=== PATIENT | male | born 1960 | race Caucasian/White ===

== ENCOUNTER 2019-11-26 18:36 | Inpatient (IN) | payer MEDICAID ==
[~2019-11-26] VITALS: Ht 162.6 cm; Wt 74.0 kg
[~2019-11-26 18:36] MED LIST: LISI-424 PO; METF100028 PO; SIMV80TA67 PO
[2019-11-26 19:01] VITALS: BP 133/102
[2019-11-26 19:58] LABS: BASOPHILS % (AUTO) 0.5 % (0.0-2.0); EOSINOPHILS # (AUTO) 0.1 K/uL (0-0.4); EOSINOPHILS % (AUTO) 2.1 % (0.0-4.0); HEMATOCRIT 35.5 % (36-52); LYMPHOCYTES # (AUTO) 1.6 K/uL (2.0-11.5); LYMPHOCYTES % (AUTO) 23.9 % (20.5-51.1); MEAN CORPUSCULAR HEMOGLOBIN 32 pg (27-31); MEAN CORPUSCULAR HGB CONC 34 g/dL (33-37); MEAN CORPUSCULAR VOLUME 95.2 fL (80-94); MONOCYTES # (AUTO) 0.3 K/uL (0.8-1.0); MONOCYTES % (AUTO) 4.6 % (1.7-9.3); NEUTROPHILS # (AUTO) 4.7 K/uL (1.8-7.7); NEUTROPHILS % (AUTO) 68.9 % (42.2-75.2); PLATELET COUNT (AUTO) 206 K/uL (140-450); RED BLOOD CELL COUNT(AUTO) 3.73 MIL/uL (4.20-6.10); RED CELL DISTRIBUTION WIDTH 13.1 % (11.6-13.7); WHITE BLOOD COUNT (AUTO) 6.8 K/uL (4.8-10.8)
[2019-11-26 20:46] LABS: ALBUMIN 2.9 g/dL (3.4-5.0); ANION GAP 17.1 (8-16); CARBON DIOXIDE 20.9 mmol/L (21-32); TOTAL BILIRUBIN 0.3 mg/dL (0.0-1.0)
[2019-11-26 20:47] LABS: CREATININE 6.4 mg/dL (0.6-1.3)
[2019-11-26] MEDS ORDERED: INSULIN REGULAR, HUMAN 100 UNIT/ML VIAL IV ONE (22:05)
[2019-11-26 22:18] LABS: CREATINE KINASE MB 2.3 ng/mL (0-3.6)
[2019-11-26] MEDS ORDERED: DOCUSATE SODIUM 100 MG GELCAP PO PRN (23:00)
[2019-11-26] MEDS ORDERED: ACETAMINOPHEN 325 MG TAB PO PRN (23:00)
[2019-11-26] MEDS ORDERED: DEXTROSE 50% 50 ML SYR IVP PRN (23:00)
[2019-11-26] MEDS ORDERED: MORPHINE SULFATE 2 MG/ML SYR IVP PRN (23:00)
[2019-11-26] MEDS ORDERED: LORazepam 2 MG/ML VIAL IM/IVP PRN (23:00)
[2019-11-26] MEDS ORDERED: HYDROcodone/APAP 5/325 MG 1 TAB TAB PO PRN (23:00)
[2019-11-26] MEDS ORDERED: ONDANSETRON 4 MG/2 ML VIAL IM/IVP PRN (23:00)
[2019-11-26 23:25] VITALS: BP 158/88
[2019-11-26 23:58] LABS: MAGNESIUM 2.1 mg/dL (1.8-2.4); PHOSPHORUS 4.5 mg/dL (2.5-4.9)
[2019-11-27] VITALS (7 sets, daily range): BP systolic 128–165; BP diastolic 78–92
[2019-11-27 00:11] LABS: PROTHROMBIN TIME 9.3 secs (10.8-13.4)
[2019-11-27] MEDS: NACL 0.9% 1,000 ML IV SCH ×3 (00:22→19:01)
[2019-11-27 03:27] LABS: BARBITURATE, URINE NEGATIVE ng/ml (NEG <=200); BENZODIAZEPINE, URINE NEGATIVE ng/mL (NEG <=200); CANNABINOID, URINE NEGATIVE ng/mL (NEG <=50); COCAINE, URINE NEGATIVE ng/mL (NEG <=300); OPIATE, URINE NEGATIVE ng/mL (NEG <=2000); PHENCYCLIDINE SCREEN,URINE NEGATIVE ng/mL (NEG <=25)
[2019-11-27] MEDS ORDERED: MECLIZINE 25 MG TAB PO PRN (03:35)
[2019-11-27] MEDS ORDERED: LANTUS SUBQ (03:41)
[2019-11-27] MEDS ORDERED: cloNIDine 0.1 MG TAB PO PRN (04:05)
[2019-11-27] MEDS: INSULIN LISPRO SLIDING SCALE 100 UNITS/ML VIAL SUBQ PRN ×4 (05:59→20:26)
[2019-11-27] MEDS: BLOOD GLUCOSE MONITORING 1 DEV DEV FS SCH ×4 (06:37→20:26)
[2019-11-27 07:04] LABS: APPEARANCE,URINE CLEAR (CLEAR); BILIRUBIN,URINE NEGATIVE (NEGATIVE); BLOOD, URINE 1+ (NEGATIVE); COLOR,URINE YELLOW (YELLOW); LEUKOCYTE ESTERASE ,URINE NEGATIVE (NEGATIVE); NITRITE, URINE NEGATIVE (NEGATIVE); PH,URINE 5.5 (5.0-9.0); UGLUCOSE 3+ (NEGATIVE)
[2019-11-27 07:11] LABS: BASOPHILS % (AUTO) 0.7 % (0.0-2.0); EOSINOPHILS # (AUTO) 0.2 K/uL (0-0.4); EOSINOPHILS % (AUTO) 3.2 % (0.0-4.0); HEMATOCRIT 30.9 % (36-52); HEMOGLOBIN 10.4 g/dL (12.0-18.0); LYMPHOCYTES % (AUTO) 27.7 % (20.5-51.1); MEAN CORPUSCULAR HEMOGLOBIN 32 pg (27-31); MEAN CORPUSCULAR HGB CONC 34 g/dL (33-37); MEAN CORPUSCULAR VOLUME 94.9 fL (80-94); MONOCYTES # (AUTO) 0.4 K/uL (0.8-1.0); MONOCYTES % (AUTO) 5.6 % (1.7-9.3); NEUTROPHILS # (AUTO) 4.5 K/uL (1.8-7.7); NEUTROPHILS % (AUTO) 62.8 % (42.2-75.2); PLATELET COUNT (AUTO) 195 K/uL (140-450); RED BLOOD CELL COUNT(AUTO) 3.25 MIL/uL (4.20-6.10); RED CELL DISTRIBUTION WIDTH 13.2 % (11.6-13.7); WHITE BLOOD COUNT (AUTO) 7.2 K/uL (4.8-10.8)
[2019-11-27 07:35] LABS: RBC,URINE 0-5 /HPF (0-5)
[2019-11-27 08:00] LABS: ANION GAP 16.8 (8-16); CARBON DIOXIDE 20.9 mmol/L (21-32); POTASSIUM 3.7 mmol/L (3.5-5.1)
[2019-11-27 08:11] LABS: CHOL/HDL RATIO 7.4 (1-4.5)
[2019-11-27] MEDS: ASPIRIN 325 MG TABEC PO SCH (15:00)
[2019-11-27] MEDS ORDERED: LACTULOSE 20 GM/30 ML UDC PO SCH (16:55)
[2019-11-27] MEDS: amLODIPine 5 MG TAB PO SCH (17:20)
[2019-11-27] MEDS: ATORVASTATIN 20 MG TAB PO SCH (20:22)
[2019-11-28] VITALS: BP 128/74
[2019-11-28 04:00] VITALS: BP 158/85
[2019-11-28] MEDS: NACL 0.9% 1,000 ML IV SCH ×2 (04:02→19:13)
[2019-11-28 04:04] LABS: BASOPHILS # (AUTO) 0.1 K/uL (0.00-0.22); BASOPHILS % (AUTO) 0.8 % (0.0-2.0); EOSINOPHILS # (AUTO) 0.2 K/uL (0-0.4); EOSINOPHILS % (AUTO) 2.5 % (0.0-4.0); HEMATOCRIT 30.9 % (36-52); HEMOGLOBIN 10.6 g/dL (12.0-18.0); LYMPHOCYTES % (AUTO) 28.4 % (20.5-51.1); MEAN CORPUSCULAR HEMOGLOBIN 33 pg (27-31); MEAN CORPUSCULAR HGB CONC 34 g/dL (33-37); MEAN CORPUSCULAR VOLUME 95.6 fL (80-94); MONOCYTES # (AUTO) 0.4 K/uL (0.8-1.0); MONOCYTES % (AUTO) 5.6 % (1.7-9.3); NEUTROPHILS # (AUTO) 4.3 K/uL (1.8-7.7); NEUTROPHILS % (AUTO) 62.7 % (42.2-75.2); PLATELET COUNT (AUTO) 191 K/uL (140-450); RED BLOOD CELL COUNT(AUTO) 3.24 MIL/uL (4.20-6.10); RED CELL DISTRIBUTION WIDTH 13.3 % (11.6-13.7); WHITE BLOOD COUNT (AUTO) 6.9 K/uL (4.8-10.8)
[2019-11-28 04:29] LABS: ANION GAP 12.1 (8-16); CARBON DIOXIDE 22.8 mmol/L (21-32); POTASSIUM 3.9 mmol/L (3.5-5.1)
[2019-11-28 04:33] LABS: MAGNESIUM 1.8 mg/dL (1.8-2.4)
[2019-11-28 04:50] LABS: CREATININE 5.3 mg/dL (0.6-1.3)
[2019-11-28] MEDS: BLOOD GLUCOSE MONITORING 1 DEV DEV FS SCH ×4 (06:29→21:20)
[2019-11-28] MEDS: BUPIVACAINE-MPF 0.25% 30 ML VIAL INJ ONE ×2 (07:32→17:00)
[2019-11-28] MEDS: LIDOCAINE 1% 500 MG/50 ML VIAL ONE ×2 (07:32→17:01)
[2019-11-28] MEDS ORDERED: DEXAMETHASONE 4 MG/ML VIAL ONE (07:44)
[2019-11-28] MEDS ORDERED: fentaNYL 0.05 MG/ML VIAL ONE (07:44)
[2019-11-28] MEDS ORDERED: PROPOFOL 200 MG/20 ML VIAL IV ONE (07:44)
[2019-11-28] MEDS ORDERED: ePHEDrine 50 MG/ML VIAL ONE (07:44)
[2019-11-28] MEDS ORDERED: ONDANSETRON 4 MG/2 ML VIAL ONE (07:44)
[2019-11-28] MEDS ORDERED: SEVOFLURANE 250 ML BTL INH ONE (07:44)
[2019-11-28 08:00] VITALS: BP 158/85
[2019-11-28] MEDS: amLODIPine 5 MG TAB PO SCH (09:00)
[2019-11-28] MEDS: ASPIRIN 325 MG TABEC PO SCH (09:00)
[2019-11-28 12:00] VITALS: BP 159/85
[2019-11-28 16:00] VITALS: BP 152/87
[2019-11-28] MEDS: INSULIN LISPRO SLIDING SCALE 100 UNITS/ML VIAL SUBQ PRN ×2 (17:24→21:59)
[2019-11-28 20:00] VITALS: BP_SYST 102; BP_SYST 131; BP_DIAS 56; BP_DIAS 82
[2019-11-28] MEDS: ATORVASTATIN 20 MG TAB PO SCH (22:53)
[2019-11-29] VITALS: BP_SYST 116; BP_SYST 149; BP_DIAS 52; BP_DIAS 86
[2019-11-29 04:00] VITALS: BP 147/79
[2019-11-29] MEDS: BLOOD GLUCOSE MONITORING 1 DEV DEV FS SCH ×3 (06:19→16:54)
[2019-11-29] MEDS: INSULIN LISPRO SLIDING SCALE 100 UNITS/ML VIAL SUBQ PRN ×3 (06:19→16:59)
[2019-11-29 06:26] LABS: BASOPHILS % (AUTO) 0.3 % (0.0-2.0); HEMATOCRIT 30.3 % (36-52); HEMOGLOBIN 10.4 g/dL (12.0-18.0); LYMPHOCYTES # (AUTO) 1.4 K/uL (2.0-11.5); LYMPHOCYTES % (AUTO) 14.9 % (20.5-51.1); MEAN CORPUSCULAR HEMOGLOBIN 32 pg (27-31); MEAN CORPUSCULAR HGB CONC 34 g/dL (33-37); MEAN CORPUSCULAR VOLUME 94.2 fL (80-94); MONOCYTES # (AUTO) 0.4 K/uL (0.8-1.0); MONOCYTES % (AUTO) 4.6 % (1.7-9.3); NEUTROPHILS # (AUTO) 7.3 K/uL (1.8-7.7); NEUTROPHILS % (AUTO) 80.2 % (42.2-75.2); PLATELET COUNT (AUTO) 207 K/uL (140-450); RED BLOOD CELL COUNT(AUTO) 3.21 MIL/uL (4.20-6.10); WHITE BLOOD COUNT (AUTO) 9.1 K/uL (4.8-10.8)
[2019-11-29 07:40] LABS: ANION GAP 12.6 (8-16); CREATININE 3.4 mg/dL (0.6-1.3); POTASSIUM 3.6 mmol/L (3.5-5.1)
[2019-11-29 07:43] LABS: MAGNESIUM 1.6 mg/dL (1.8-2.4); PHOSPHORUS 3.5 mg/dL (2.5-4.9)
[2019-11-29 08:00] VITALS: BP 156/83
[2019-11-29] MEDS: amLODIPine 5 MG TAB PO SCH (09:14)
[2019-11-29] MEDS: ASPIRIN 325 MG TABEC PO SCH (09:14)
[2019-11-29] MEDS: NACL 0.9% 1,000 ML IV SCH (11:39)
[2019-11-29 12:00] VITALS: BP 148/88
[2019-11-29] MEDS ORDERED: MAG SULF 2000 MG/WATER PREMIX 50 ML IV SCH (12:15)
[2019-11-29] MEDS ORDERED: ASPI-1205 PO (13:39)
[2019-11-29] MEDS ORDERED: AMLO10TA PO (14:27)
[2019-11-29 16:00] VITALS: BP 150/83
[2019-11-30 06:07] LABS: HEPATITIS A ANTIBODY IGM Negative (Negative); HEPATITIS B CORE AB TOTAL Negative (Negative); HEPATITIS B SURFACE ANTIBODY Non Reactive (.); HEPATITIS B SURFACE ANTIGEN Negative (Negative)
== END 2019-11-29 17:55 | disposition home or self-care (01) | DRG 48 ==
LOC: MED 18:36 → MTU 22:06
PROVIDERS: ADMIT General Practice; ATTEND General Practice
PROC: B5181ZA Fluoroscopy of Superior Vena Cava using Low Osmolar Contrast, Guidance (ICD-10-PCS; 2019-11-28)
PROC: B548ZZA Ultrasonography of Superior Vena Cava, Guidance (ICD-10-PCS; 2019-11-28)
PROC: 0JH63XZ Insertion of Tunneled Vascular Access Device into Chest Subcutaneous Tissue and Fascia, Percutaneous Approach (ICD-10-PCS; 2019-11-28)
PROC: 5A1D70Z Performance of Urinary Filtration, Intermittent, Less than 6 Hours Per Day (ICD-10-PCS; 2019-11-28)
PROC: 02HV33Z Insertion of Infusion Device into Superior Vena Cava, Percutaneous Approach (ICD-10-PCS; principal; 2019-11-28 07:30)
DX: G90.8 Other disorders of autonomic nervous system (principal); N17.0 Acute kidney failure with tubular necrosis; G93.41 Metabolic encephalopathy; E44.0 Moderate protein-calorie malnutrition; I12.0 Hypertensive chronic kidney disease with stage 5 chronic kidney disease or end stage renal disease; E11.22 Type 2 diabetes mellitus with diabetic chronic kidney disease; E11.319 Type 2 diabetes mellitus with unspecified diabetic retinopathy without macular edema; G81.94 Hemiplegia, unspecified affecting left nondominant side; N25.81 Secondary hyperparathyroidism of renal origin; E11.40 Type 2 diabetes mellitus with diabetic neuropathy, unspecified; N18.5 Chronic kidney disease, stage 5; E11.65 Type 2 diabetes mellitus with hyperglycemia; E66.9 Obesity, unspecified; N39.0 Urinary tract infection, site not specified; H54.62 Unqualified visual loss, left eye, normal vision right eye; D63.1 Anemia in chronic kidney disease; G45.9 Transient cerebral ischemic attack, unspecified; E87.1 Hypo-osmolality and hyponatremia; Z68.30 Body mass index [BMI] 30.0-30.9, adult; Z79.84 Long term (current) use of oral hypoglycemic drugs; Z79.899 Other long term (current) drug therapy; Z90.49 Acquired absence of other specified parts of digestive tract
CPT/HCPCS: 36415; 36600; 70450; 71045; 80048; 80053; 80305; 81001; 82140; 82306; 82550; 82553; 82803; 82948; 83036; 83690; 83735; 83880; 83970; 84100; 84443; 84484; 84550; 85025; 85610; 85730; 86704; 86706; 86708; 86709; 86803; 86886; 86900; 86901; 87081; 87086; 87340; 92610; 93005; 93880; 96374; 97110; 97116; 97161-GP; 97530; 99291; C1750; J0696; J1100; J1644; J1815; J2001; J2060; J2405; J2704; J3010; J3475; J3490; J7030; J7060; Q0092

== ENCOUNTER 2020-02-18 14:54 | Emergency (ER) | payer MEDICAID ==
[~2020-02-18] VITALS: Ht 165.1 cm; Wt 73.5 kg
[~2020-02-18 14:54] MED LIST changes: +AMLO10TA PO; +ASPI-1205 PO; +LANTUS SUBQ; -METF100028 PO
[2020-02-18 15:03] VITALS: BP 155/87
[2020-02-18 16:07] VITALS: BP 155/87
== END 2020-02-18 16:07 | disposition home or self-care (01) ==
LOC: MED 14:54
DX: L89.894 Pressure ulcer of other site, stage 4 (principal); E11.9 Type 2 diabetes mellitus without complications; I10 Essential (primary) hypertension; Z79.899 Other long term (current) drug therapy; Z79.82 Long term (current) use of aspirin
CPT/HCPCS: 73620; 99283

== ENCOUNTER 2020-08-06 21:04 | Emergency (ER) | payer MEDICAID ==
[~2020-08-06] VITALS: Ht 162.6 cm; Wt 72.6 kg
[2020-08-06 21:18] VITALS: BP 131/80
--- NOTE | 2020-08-06 21:18 | NUR ---
BACK PAIN X TUESDAY. DENIES ANY TRUAMA, FALLS, OR INJURY. 8/ PAIN. TOOK TYLENOL 3OMINS AGO WITH NO RELIEF. DENIES ANY BURNING SENSATION WHEN URINATING. A&OX4. STEADY GAIT NOTED. PMH: DM, DIALYSIS(RT UPPER CHEST CATH IS LOCATED) GOES TUES, THURS, AND SAT.
[2020-08-06] MEDS ORDERED: KETOROLAC 60 MG/2 ML VIAL IM ONE (22:25)
[2020-08-06 23:01] VITALS: BP 131/80
== END 2020-08-06 23:01 | disposition home or self-care (01) ==
LOC: MED 21:04
DX: M54.5 Low back pain (principal); E11.9 Type 2 diabetes mellitus without complications; I10 Essential (primary) hypertension; Z79.4 Long term (current) use of insulin; Z79.899 Other long term (current) drug therapy; Z79.82 Long term (current) use of aspirin
CPT/HCPCS: 81002; 96372; 99283; J1885

== ENCOUNTER 2020-08-11 22:07 | Inpatient (IN) | payer MEDICAID, SELFPAY ==
[~2020-08-11] VITALS: Ht 160 cm; Wt 74.8 kg
--- NOTE | 2020-08-11 22:09 | NUR ---
pt triaged and waiting in tent.
--- NOTE | 2020-08-11 22:20 | NUR ---
placed pt on NRB 15LPM for sats of 69-70%. now 94-95%.
[2020-08-11] MEDS ORDERED: DEXAMETHASONE 4 MG/ML VIAL IM ONE (22:50)
[2020-08-11] MEDS ORDERED: ALBUTEROL SULFATE/IPRATROPIU 3 ML SOL IH ONE (22:50)
[2020-08-11] MEDS ORDERED: AZITHROMYCIN 250 MG TAB PO ONE (22:50)
[2020-08-11] MEDS ORDERED: cefTRIAXone 1,000 MG in LIDOCAINE MPF 1% 2.1 ML IM ONE (22:50)
[2020-08-11 22:54] VITALS: BP 149/67
--- NOTE | 2020-08-11 23:10 | NUR ---
PCR and Elizabeth swabs collected.
--- NOTE | 2020-08-11 23:30 | NUR ---
PT GIVEN MDI + ABG DRAWN B/S CLR/DIM PT TOLERATED WELL 2X PUFF ALB
--- NOTE | 2020-08-11 23:31 | NUR ---
ATTEMPTED ABG PUNCTURE AND PT IS REFUSING AT THIS TIME PT CURRENTLY ON 100% NRB SPO2 93% HR 107 f 26
[2020-08-11 23:49] LABS: BASOPHILS % (AUTO) 0.1 % (0.0-2.0); HEMATOCRIT 29.4 % (36-52); LYMPHOCYTES % (AUTO) 7.8 % (20.5-51.1); MEAN CORPUSCULAR HEMOGLOBIN 32 pg (27-31); MEAN CORPUSCULAR HGB CONC 34 g/dL (33-37); MEAN CORPUSCULAR VOLUME 95.6 fL (80-94); MONOCYTES # (AUTO) 0.3 K/uL (0.8-1.0); MONOCYTES % (AUTO) 2.1 % (1.7-9.3); PLATELET COUNT (AUTO) 191 K/uL (140-450); RED BLOOD CELL COUNT(AUTO) 3.08 MIL/uL (4.20-6.10); RED CELL DISTRIBUTION WIDTH 13.7 % (11.6-13.7); WHITE BLOOD COUNT (AUTO) 12.2 K/uL (4.8-10.8)
[2020-08-11 23:55] LABS: FIBRINOGEN 287 mg/dL (200-400)
[2020-08-11 23:58] LABS: ALBUMIN 2.5 g/dL (3.4-5.0); ANION GAP 16.5 (8-16); CARBON DIOXIDE 25.9 mmol/L (21-32); POTASSIUM 3.4 mmol/L (3.5-5.1); TOTAL BILIRUBIN 0.6 mg/dL (0.0-1.0)
[2020-08-12 00:10] LABS: CREATININE 8.7 mg/dL (0.6-1.3)
[2020-08-12 00:12] LABS: D-DIMER 2290 ng/ml (0-400)
[2020-08-12 00:20] LABS: C-REACTIVE PROTEIN QUANT 3.5 mg/dL (0.0-0.9)
[2020-08-12] MEDS ORDERED: AZITHROMYCIN 250 MG TAB ONE (02:37)
[2020-08-12] MEDS ORDERED: cefTRIAXone 1,000 MG VIAL ONE ×2 (02:37→22:18)
[2020-08-12] MEDS ORDERED: DEXAMETHASONE 4 MG/ML VIAL ONE (02:37)
--- NOTE | 2020-08-12 08:17 | NUR ---
aaox4 . o2sat 97% with O2 non rebreather.
[2020-08-12] MEDS ORDERED: HYDROcodone/APAP 7.5/325 MG 1 TAB PO PRN (08:20)
[2020-08-12] MEDS ORDERED: DEXTROSE 50% 50 ML SYR IVP PRN (08:20)
[2020-08-12] MEDS ORDERED: ACETAMINOPHEN 325 MG TAB PO PRN (08:20)
[2020-08-12] MEDS ORDERED: ALBUTEROL HFA MDI 90 MCG/ACTUATION 8 GM INH PRN (08:20)
[2020-08-12] MEDS ORDERED: ONDANSETRON 4 MG/2 ML VIAL IM/IVP PRN (08:20)
[2020-08-12] MEDS ORDERED: POTASSIUM CHLORIDE 10 MEQ TABER PO PRN (08:20)
[2020-08-12] MEDS ORDERED: DOCUSATE SODIUM 100 MG GELCAP PO PRN (08:20)
--- NOTE | 2020-08-12 09:17 | NUR ---
PATIENT HAS BEEN SCREENED AND CATEGORIZED MODERATE NUTRITION RISK. PATIENT WILL BE SEEN WITHIN 3-5 DAYS OF ADMISSION. 08/14/20 08/16/[address]
[2020-08-12] MEDS: ASPIRIN 325 MG TAB PO SCH (09:29)
[2020-08-12] MEDS: amLODIPine 5 MG TAB PO SCH (09:30)
[2020-08-12] MEDS: ASCORBIC ACID 500 MG TAB PO SCH (09:32)
[2020-08-12] MEDS: ZINC SULF 220 MG CAP PO SCH (09:33)
[2020-08-12] MEDS: lisinopriL 5 MG TAB PO SCH (09:33)
--- NOTE | 2020-08-12 10:52 | NUR ---
SOCIAL WORK NOTE: Patient's Orientation Unable To Assess Information Provided By NANI LLAMAS - SON Comments SW WAS UNABLE TO MEET PATIENT AT BEDSIDE TO COMPLETE ASSESSMENT. SW COMPLETED ASSESSMENT WITH PATIENT'S SON. Discovery Guide, Realtionship and Phone Number NANI WILLIAMSON [phone] Healthcare Power of Weather Stripper No Does Patient Have a POLST No Identifying Problems No Social Work Triggers Is A Social Work Consult Needed No Mandate Report Filed No Explanation Of Identifying Problems PATIENT IS A 60-YEAR-OLD MALE ADMITTED FOR ACUTE RESPIRATORY FAILURE. PATIENT HAS PMHX OF CVA, ESRD, AND HYPERTENSION. Admitted From Home Pre-Admission Level Of Functioning Status Independent/Ambulatory Prior Resources/Services Used In Last 12 Months No Prior Resources Used Prior DME No Prior DME Used Dialysis Hemodialysis Name And Phone Number of Dialysis Facility [facility] ESRD Outpatient Days [facility] ESRD Outpatient Time [address] Lives With Family Patient Had Caregiver No Home Support No Caregiver Issues Financial Issues No Known Financial Issue Referral To The Financial Counselor Needed No Factors/Needs No D/C Needs Identified Pt/Rep Participated In Discharge Plan Yes Patient/Family Agress With Discharge Plan Yes Discharge Plan Comments TENTATIVE DISCHARGE PLAN IS FOR PATIENT TO RETURN HOME. DC Plan Status Initiated
[2020-08-12] MEDS: BLOOD GLUCOSE MONITORING 1 DEV DEV FS SCH ×3 (11:54→21:00)
[2020-08-12] MEDS: INSULIN LISPRO SLIDING SCALE 100 UNITS/ML VIAL SUBQ PRN ×3 (11:56→22:55)
[2020-08-12 13:30] LABS: CHOL/HDL RATIO 3.6 (1-4.5); FREE T4 (FREE THYROXINE) 1.83 ng/dL (0.76-1.46); MAGNESIUM 2.5 mg/dL (1.8-2.4); PHOSPHORUS 5.6 mg/dL (2.5-4.9); THYROID STIMULATING HORMONE 0.24 uIU/mL (0.34-3.74)
[2020-08-12 13:32] LABS: PROTHROMBIN TIME 10.2 secs (10.8-13.4)
--- NOTE | 2020-08-12 17:00 | NUR ---
PATIENT TAKEN TO BED 10 VIA WHEELCHAIR, UNABLE TO AMBULATE AT THIS TIME
--- NOTE | 2020-08-12 18:10 | NUR ---
+ covid result from lab-- copy to go to infection prevention
--- NOTE | 2020-08-12 18:58 | NUR ---
PATIENT SP02 78-82% 15L NON REBREATHERMD LUEVANO MADE AWARE. PATIENT REMINDED TO TAKE DEEP BREATHS. AWAKE AND ALERT.
--- NOTE | 2020-08-12 19:15 | NUR ---
ASSUMED REPONSIBILITY OF CARE AT THIS TIME. PT RESTING IN BED, VERBALLY RESPONSIVE, GREEK SPEAKING ONLY. LUNG SOUNDS COARSE THROUGHOUT. 15 LPM VIA NON-REBREATHER. ABD NON-DISTENDED, NONTENDER. +BOWEL SOUNDS NOTED. DENIES PAIN AT THIS TIME. BED LOW AND LOCKED WITH SAFETY PRECAUTIONS IN PLACE. WILL CONT TO MONITOR.
--- NOTE | 2020-08-12 20:07 | NUR ---
CALLED TO BEDSIDE PT DESAT 79-82 NRB WAS LOOSE ON FACE PLACED NRB BACK ON FACE AND PT SPO2 CURRENTLY 85% APPEARS TO BE SLOWLY RISING WILL CONTINUE TO MONITOR
[2020-08-12] MEDS: SIMVASTATIN 40 MG TAB PO SCH (21:00)
[2020-08-12] MEDS ORDERED: SIMVASTATIN PO SCH (21:00)
[2020-08-12] MEDS ORDERED: AZITHROMYCIN 250 MG TAB PO SCH (21:00)
--- NOTE | 2020-08-12 22:00 | NUR ---
RESTING BLOOD SUGAR 342 AT THIS TIME. INSLIN ADMINISTERED, PER SLIDING SCALE. DENIES ANY SYMPTOMS OF HYPERGLYCEMIA AT THIS TIME. EDUCATED ON APPROPRIATE DIET. WILL CONT TO MONITOR.
--- NOTE | 2020-08-13 | NUR ---
PRN POTASSIUM ADMINISTERED AT THIS TIME FOR K LEVEL OF 3.4. WILL FOLLOW-UP
--- NOTE | 2020-08-13 04:57 | NUR ---
ASSISTED PT TO REPOSITION. CONTINUES ON NON-REBREATHER @ 15 LPM.
[2020-08-13] MEDS: BLOOD GLUCOSE MONITORING 1 DEV DEV FS SCH ×4 (06:52→20:53)
[2020-08-13] MEDS: INSULIN LISPRO SLIDING SCALE 100 UNITS/ML VIAL SUBQ PRN ×4 (06:53→20:59)
--- NOTE | 2020-08-13 07:18 | NUR ---
TRANSFER OF CARE AT THIS TIME FROM DREW BERMEO
[2020-08-13 08:07] LABS: T4 (THYROXINE) 7.2 ug/dL (4.5-12.0)
[2020-08-13 08:47] LABS: BASOPHILS % (AUTO) 0.1 % (0.0-2.0); HEMOGLOBIN 10.7 g/dL (12.0-18.0); LYMPHOCYTES # (AUTO) 0.4 K/uL (2.0-11.5); LYMPHOCYTES % (AUTO) 2.7 % (20.5-51.1); MEAN CORPUSCULAR HEMOGLOBIN 32 pg (27-31); MEAN CORPUSCULAR HGB CONC 33 g/dL (33-37); MEAN CORPUSCULAR VOLUME 96.9 fL (80-94); MONOCYTES # (AUTO) 0.3 K/uL (0.8-1.0); NEUTROPHILS # (AUTO) 15.8 K/uL (1.8-7.7); NEUTROPHILS % (AUTO) 95.2 % (42.2-75.2); PLATELET COUNT (AUTO) 244 K/uL (140-450); RED CELL DISTRIBUTION WIDTH 14.1 % (11.6-13.7); WHITE BLOOD COUNT (AUTO) 16.5 K/uL (4.8-10.8)
--- NOTE | 2020-08-13 09:33 | NUR ---
REPORT GIVEN TO RUTH RUSSELL FOR CONTINUATION OF CARE.
[2020-08-13 09:37] LABS: ANION GAP 20.6 (8-16); CARBON DIOXIDE 21.2 mmol/L (21-32); POTASSIUM 3.8 mmol/L (3.5-5.1)
[2020-08-13] MEDS: ASPIRIN 325 MG TAB PO SCH (09:43)
[2020-08-13] MEDS: ASCORBIC ACID 500 MG TAB PO SCH (09:44)
[2020-08-13] MEDS: amLODIPine 5 MG TAB PO SCH (09:44)
[2020-08-13] MEDS: lisinopriL 5 MG TAB PO SCH (09:44)
[2020-08-13] MEDS: ZINC SULF 220 MG CAP PO SCH (09:45)
--- NOTE | 2020-08-13 10:20 | NUR ---
Patient will be admitted to care of dr. luong. Admited to TELE. Will go to room 108 a. Belongings list completed. Report to nicko anton.
[2020-08-13 10:23] LABS: CREATININE 10.8 mg/dL (0.6-1.3)
[2020-08-13 10:30] VITALS: BP 145/86
--- NOTE | 2020-08-13 12:30 | NUR ---
HD NURSE AT BEDSIDE TO PERFORM HD. WILL CONTINUE TO MONITOR.
--- NOTE | 2020-08-13 13:35 | NUR ---
SCHEDULED MEDICATIONS DUE GIVEN. WILL CONTINUE TO MONITOR.
--- NOTE | 2020-08-13 14:12 | NUR ---
DC PLANNIN YRS OLD MALE PATIENT WAS ADMITTED FROM HOME WITH A DX OF ACUTE RESP FAILURE. HX OF ESRD ON HEMODIALYSIS TTHS AT [facility]. RAPID AND PCR COVID TEST POSITIVE. ON 15LNRB MASK SATING 89%. ADMINISTERED ROCEPHIN AND AZITHROMYCIN IV ABX. ORDERED CONVALESCENT PLASMA. CONSULTED WITH PULMO, NEPHRO AND ID. DC PLAN TO GO HOME WHEN STABLE CM TO FOLLOW Addendum: 08/15/20 at 1638 by Meenakshi Roa RN DC PLANNING: STILL ON 15LNRB SATING 90% PULMO AND ID FOLLOWING CM TO FOLLOW Addendum: 08/18/20 at 1512 by María Cid CM ORALLY INTUBATED TO VENT, FIO2 100%, PEEP 10, O2 SAT 95%. SEDATED WITH VERSED AND PROPOFOL. ON LEVOPHED DRIP. ON ELIQUIS, DECADRON. PER PULMO - CONT MECHANICAL VENTILATION SUPPORT, WEAN TOLERATED. WITH BILATERAL CHEST TUBE PLACED FOR PNEUMOTHORAX, ON WALL SUCTION.
[2020-08-13 16:00] VITALS: BP 124/80
[2020-08-13] MEDS: SEVELAMER CARBONATE 800 MG TAB PO SCH (17:45)
--- NOTE | 2020-08-13 17:45 | NUR ---
SCHEDULED MEDICATIONS DUE GIVEN. WILL CONTINUE TO MONITOR.
[2020-08-13 20:00] VITALS: BP 124/73
[2020-08-13] MEDS: SIMVASTATIN 40 MG TAB PO SCH (20:50)
[2020-08-13] MEDS: APIXABAN 2.5 MG TAB PO SCH (20:53)
--- NOTE | 2020-08-13 23:10 | NUR ---
PLASMA CONVALESCENT TRANSFUSION DONE, NO REACTIONS NOTED, VITAL SIGNS STABLE, PT SLEEPING, EASILY AROUSABLE, NO RESP DISTRESS NOTED, MONITORED CLOSELY.
[2020-08-14] VITALS: BP 133/70
[2020-08-14 04:00] VITALS: BP 146/82
--- NOTE | 2020-08-14 04:51 | NUR ---
PT VOIDED FREELY PER URINAL WITH 200ML LIGHT DAVID URINE, OCCASIONAL COUGH NOTED, PUT ON HIGH FOWLERS POSITION, 89% ON 15L NRB MASK, MONITORED CLOSELY.
[2020-08-14] MEDS: INSULIN LISPRO SLIDING SCALE 100 UNITS/ML VIAL SUBQ PRN ×4 (06:00→21:01)
--- NOTE | 2020-08-14 07:00 | NUR ---
CALLED [facility] AND TALKED TO SENAIT, MADE AWARE THAT PT HAS A SCHEDULED HD TODAY, WILL ENDORSE.
[2020-08-14] MEDS: BLOOD GLUCOSE MONITORING 1 DEV DEV FS SCH ×4 (07:07→21:01)
--- NOTE | 2020-08-14 07:25 | NUR ---
RECEIVED REPORT FROM NIGHT NURSE PATIENT IS AAOX4 ROMANSH SPEAKING, ON 15 LPM NON REBREATHER MASK SATURATION AT 85-91% SKIN INTACT , PLASMA COMPLETE 08/14/2020, FOR HEMODIALYSIS TODAY WITH RIGHT CHEST TUNNEL CATHETER ACCESS, IV INTACT, LATEST BLOOD SUGAR 377 MG/DL, SAFETY MEASURES IN PLACE AND CALL LIGHT WITHIN REACH.
--- NOTE | 2020-08-14 07:28 | NUR ---
PT AWAKE, NO SIGNS OF DISTRESS, REPORT GIVEN TO DREW ZHAO FOR CONTINUITY OF CARE.
[2020-08-14 08:00] VITALS: BP 127/56
[2020-08-14 08:43] LABS: BASOPHILS % (AUTO) 0.1 % (0.0-2.0); LYMPHOCYTES # (AUTO) 0.4 K/uL (2.0-11.5); LYMPHOCYTES % (AUTO) 2.8 % (20.5-51.1); MEAN CORPUSCULAR HEMOGLOBIN 32 pg (27-31); MEAN CORPUSCULAR HGB CONC 33 g/dL (33-37); MEAN CORPUSCULAR VOLUME 97.1 fL (80-94); MONOCYTES # (AUTO) 0.5 K/uL (0.8-1.0); MONOCYTES % (AUTO) 3.2 % (1.7-9.3); NEUTROPHILS # (AUTO) 14.3 K/uL (1.8-7.7); NEUTROPHILS % (AUTO) 93.9 % (42.2-75.2); PLATELET COUNT (AUTO) 255 K/uL (140-450); RED BLOOD CELL COUNT(AUTO) 3.09 MIL/uL (4.20-6.10); RED CELL DISTRIBUTION WIDTH 13.9 % (11.6-13.7); WHITE BLOOD COUNT (AUTO) 15.3 K/uL (4.8-10.8)
[2020-08-14] MEDS: amLODIPine 5 MG TAB PO SCH (09:00)
[2020-08-14] MEDS: lisinopriL 5 MG TAB PO SCH (09:00)
[2020-08-14 09:11] LABS: ANION GAP 25.1 (8-16); CARBON DIOXIDE 21.8 mmol/L (21-32); POTASSIUM 3.9 mmol/L (3.5-5.1)
[2020-08-14] MEDS: ASCORBIC ACID 500 MG TAB PO SCH (09:25)
[2020-08-14] MEDS: APIXABAN 2.5 MG TAB PO SCH ×2 (09:26→20:55)
[2020-08-14] MEDS: ZINC SULF 220 MG CAP PO SCH (09:27)
[2020-08-14] MEDS: ASPIRIN 325 MG TAB PO SCH (09:27)
[2020-08-14] MEDS: SEVELAMER CARBONATE 800 MG TAB PO SCH ×3 (09:27→17:32)
--- NOTE | 2020-08-14 09:30 | NUR ---
HEMODIALYSIS STARTED AT THIS TIME VITAL SIGNS TAKEN BP 121/72 NC 81 AND TEMP 98.1
--- NOTE | 2020-08-14 09:37 | NUR ---
MEDICATIONS DUE GIVEN PATIENT. NO SIGNS OF DISTRESS.
--- NOTE | 2020-08-14 09:39 | NUR ---
BP MEDICATIONS NOT GIVEN DUE TO DIALYSIS TODAY.
--- NOTE | 2020-08-14 10:25 | NUR ---
RECEIVED CRITICAL VALEU FROM LAB BUN 89, CREATININE 8.9. REPORTED TO DR SILVA.
[2020-08-14 10:27] LABS: CREATININE 8.9 mg/dL (0.6-1.3)
--- NOTE | 2020-08-14 11:30 | NUR ---
BLOOD SUGAR 224 INSULIN COVERAGE GIVEN.
--- NOTE | 2020-08-14 11:36 | NUR ---
PATIENT HEMODIALYSIS COMPLETE AT THIS TIME WITH 1.3 OUTPUT PATIENT IS STABLE
[2020-08-14 12:00] VITALS: BP 124/76
--- NOTE | 2020-08-14 12:05 | NUR ---
MEDICATION DUE GIVEN PATIENT TOLERATED WELL,
[2020-08-14 16:00] VITALS: BP 142/81
--- NOTE | 2020-08-14 16:30 | NUR ---
MEDICATION DUE GIVEN PATIENT. BLOOD SUGAR NOTED 312, INSULIN GIVEN NEEDED. PATIENT SHOWN NO SIGNS OF DISTRESS. CALL LIGHT WITHIN REACH. WILL CONTINUE TO MONITOR NEEDED
--- NOTE | 2020-08-14 19:28 | NUR ---
ENDORSED TO NIGHT NURSE FOR CONTINUITY OF CARE
--- NOTE | 2020-08-14 19:30 | NUR ---
RECEIVED PT ON HIGH FOWLERS POSITION, AAOX4, IRISH SPEAKING, NO RESP DISTRESS NOTED WITH SAT OF 91% ON 15L NRB MASK, WITH RT CHEST TUNNELED CATH IN PLACE, DRESSING DRY AND INTACT, ON DROPLET PRECAUTION, SAFETY MEASURES IN PLACE, CALL LIGHT WITHIN REACH.
[2020-08-14 20:00] VITALS: BP 144/70
[2020-08-14] MEDS: SIMVASTATIN 40 MG TAB PO SCH (20:53)
--- NOTE | 2020-08-14 21:05 | NUR ---
BLOOD SUGAR CHECKED WITH 317 RESULT, COVERAGE GIVEN, BEDTIME SNACK PROVIDED, ALL NEEDS ATTENDED.
--- NOTE | 2020-08-14 22:30 | NUR ---
SEEN PT SLEEPING ON HIGH FOWLERS POSITION, NO SIGNS OF RESP DISTRESS, MONITORED CLOSELY.
[2020-08-15] VITALS: BP 135/74
[2020-08-15 04:00] VITALS: BP 135/76
--- NOTE | 2020-08-15 04:20 | NUR ---
PT HAD NOSE BLEED FROM BLOWING HIS NOSE, RT MADE AWARE, RT PUT HUMIDIFIER ON THE O2, PT INSTRUCTED TO MINIMIZE BLOWING HIS NOSE ONLY WHEN IT'S NECESSARY, VERBALIZED UNDERSTANDING, MONITORED CLOSELY.
[2020-08-15] MEDS: INSULIN LISPRO SLIDING SCALE 100 UNITS/ML VIAL SUBQ PRN ×3 (06:05→21:26)
[2020-08-15] MEDS: BLOOD GLUCOSE MONITORING 1 DEV DEV FS SCH ×4 (06:57→21:24)
--- NOTE | 2020-08-15 07:35 | NUR ---
PT AWAKE, NO SIGNS OF DISTRESS, REPORT GIVEN TO RN JACQUELINE FOR CONTINUITY OF CARE.
[2020-08-15 08:00] VITALS: BP 122/69
[2020-08-15] MEDS: SEVELAMER CARBONATE 800 MG TAB PO SCH ×3 (08:00→17:28)
[2020-08-15 08:19] LABS: BASOPHILS % (AUTO) 0.1 % (0.0-2.0); HEMATOCRIT 28.6 % (36-52); HEMOGLOBIN 9.5 g/dL (12.0-18.0); LYMPHOCYTES # (AUTO) 0.6 K/uL (2.0-11.5); LYMPHOCYTES % (AUTO) 4.2 % (20.5-51.1); MEAN CORPUSCULAR HEMOGLOBIN 32 pg (27-31); MEAN CORPUSCULAR HGB CONC 33 g/dL (33-37); MEAN CORPUSCULAR VOLUME 96.6 fL (80-94); MONOCYTES # (AUTO) 0.9 K/uL (0.8-1.0); MONOCYTES % (AUTO) 6.9 % (1.7-9.3); NEUTROPHILS # (AUTO) 11.8 K/uL (1.8-7.7); NEUTROPHILS % (AUTO) 88.8 % (42.2-75.2); PLATELET COUNT (AUTO) 258 K/uL (140-450); RED BLOOD CELL COUNT(AUTO) 2.97 MIL/uL (4.20-6.10); RED CELL DISTRIBUTION WIDTH 13.9 % (11.6-13.7); WHITE BLOOD COUNT (AUTO) 13.3 K/uL (4.8-10.8)
[2020-08-15 08:28] LABS: ANION GAP 17.6 (8-16); CARBON DIOXIDE 23.3 mmol/L (21-32); POTASSIUM 3.9 mmol/L (3.5-5.1)
[2020-08-15] MEDS: amLODIPine 5 MG TAB PO SCH (09:00)
[2020-08-15] MEDS: ASCORBIC ACID 500 MG TAB PO SCH (09:00)
[2020-08-15] MEDS: APIXABAN 2.5 MG TAB PO SCH ×3 (09:00→21:14)
[2020-08-15] MEDS: ASPIRIN 325 MG TAB PO SCH (09:00)
[2020-08-15] MEDS: lisinopriL 5 MG TAB PO SCH (09:01)
[2020-08-15] MEDS: ZINC SULF 220 MG CAP PO SCH (09:01)
[2020-08-15 10:19] LABS: CREATININE 7.5 mg/dL (0.6-1.3)
[2020-08-15 12:00] VITALS: BP 132/75
[2020-08-15 16:00] VITALS: BP 139/71
--- NOTE | 2020-08-15 19:30 | NUR ---
RECEIVED REPORT FROM DAY SHIFT NURSE. PT AAOX4, ABLE TO MAKE NEEDS KNOWN. PT ON O2 15LPM VIA NON-REBREATHER MASK. PT TACHYPNEIC. CURRENT O2 SAT 89%. ABDOMEN IS SOFT AND NON-TENDER, ACTIVE BOWEL SOUNDS NOTED. SKIN IS WARM, DRY, AND INTACT. PT WITH IV ACCESS ON RIGHT FA G20 PATENT AND INTACT, SALINE LOCKED. PT DENIES ANY PAIN OR DISCOMFORT. NO REQUESTS MADE. SAFETY MEASURES IN PLACE. CALL LIGHT WITHIN REACH. WILL CONTINUE TO MONITOR.
[2020-08-15 20:00] VITALS: BP 151/83
[2020-08-15] MEDS: SIMVASTATIN 40 MG TAB PO SCH (21:13)
--- NOTE | 2020-08-15 21:14 | NUR ---
VS STABLE. SCHEDULED MEDS GIVEN. NON-REBREATHER MASK IN PLACE. O2 SAT 90%. PT KEPT COMFORTABLE. CALL LIGHT WITHIN REACH. WILL CONTINUE TO MONITOR.
[2020-08-16] VITALS (12 sets, daily range): BP systolic 84–156; BP diastolic 45–86
--- NOTE | 2020-08-16 | NUR ---
ENDORSED TO ICU NURSE SKYLER) FOR CONTINUITY OF CARE. Addendum: 08/16/20 at 0111 by Lazarus Haynes RN WRONG PATIENT
--- NOTE | 2020-08-16 00:03 | NUR ---
VS STABLE. PT IN BED RESTING WITH HOB ELEVATED. O2 IN PLACE. CURRENT O2 SAT 88%. ASSISTED PT IN DRINKING WATER. SAFETY MEASURES IN PLACE, CALL LIGHT WITHIN REACH. WILL CONTINUE TO MONITOR.
--- NOTE | 2020-08-16 02:16 | NUR ---
ROUNDS MADE. PT O2 SAT 76%, PT REMOVED NON-REBREATHER MASK. NON-REBREATHER MASK PLACED BACK, PT REFUSES TO BE ON PRONE POSITION SO PATIENT ASSISTED IN SIDE LYING POSITION. O2 SAT NOW UP TO 92%. PT KEPT COMFORTABLE. SAFETY MEASURES IN PLACE. CALL LIGHT WITHIN REACH. WILL CONTINUE TO MONITOR.
--- NOTE | 2020-08-16 04:09 | NUR ---
VS STABLE. PT REMOVED NON-REBREATHER MASK AGAIN. PT ASSISTED IN PUTTING MASK BACK ON AND ASSISTED IN SIDE LYING POSITION. CURRENT O2 SAT 90%. SAFETY MEASURES IN PLACE. CALL LIGHT WITHIN REACH. HEALTH TEACHING ON IMPORTANCE OF NOT REMOVING MASK IN PRONE POSITIONING GIVEN, REINFORCEMENT NEEDED. WILL CONTINUE TO MONITOR.
[2020-08-16] MEDS: BLOOD GLUCOSE MONITORING 1 DEV DEV FS SCH ×4 (06:30→22:00)
[2020-08-16] MEDS: INSULIN LISPRO SLIDING SCALE 100 UNITS/ML VIAL SUBQ PRN ×4 (06:31→22:29)
--- NOTE | 2020-08-16 07:30 | NUR ---
RECEIVED REPORT FROM NIGHT NURSE PATIENT IS AAOX4, ON 15LPM NON RE BREATHER MASK AND 7 LPM NC HUMIDIFIER, SKIN INTACT, IV INTACT ON RIGHT FOREARM, WITH ROGHT UPPER CHEST MERI CATHETER FOR HEMODIALYSIS, LAST HEMODIALYSIS ON AUGUST 14, 2020 AND SCHEDULED FOR HEMODIALYSIS TODAY. PATIENT NEEDS REINFORCEMENT ON NOT TAKING THE MASK OUT, SAFETY MEASURES IN PLACE AND CALL LIGHT WITHIN REACH.WILL CONTINUE TO MONITOR.
--- NOTE | 2020-08-16 07:47 | NUR ---
ENDORSED TO DAY SHIFT NURSE FOR CONTINUITY OF CARE
[2020-08-16] MEDS: SEVELAMER CARBONATE 800 MG TAB PO SCH ×3 (08:00→17:47)
[2020-08-16] MEDS: amLODIPine 5 MG TAB PO SCH (09:00)
[2020-08-16] MEDS: APIXABAN 2.5 MG TAB PO SCH ×2 (09:00→22:31)
[2020-08-16] MEDS: lisinopriL 5 MG TAB PO SCH (09:00)
[2020-08-16] MEDS: ASCORBIC ACID 500 MG TAB PO SCH (09:00)
[2020-08-16] MEDS: ASPIRIN 325 MG TAB PO SCH (09:00)
[2020-08-16] MEDS: ZINC SULF 220 MG CAP PO SCH (09:00)
--- NOTE | 2020-08-16 09:51 | NUR ---
PATIENT NOTED TO HAVE 51% OXYGEN SATURATION. RAPID RESPONSE TEAM NOTIFIED. RT AWARE. DR. SILVA NOTIFIED. ABLE TO TALK TO RP NANI LLAMAS. DR SILVA WAS ABLE TO TALK TO RP WELL. PATIENT IS FOR INTUBATION PER MD ORDER.
--- NOTE | 2020-08-16 10:00 | NUR ---
PT WAS INTUBATED FOR RESPIRATORY DISTRESS , INTUBATED BY WITH 7.5 ETT AT 23CM AND PLACED ON VOCSN VENT SETTINGS AC18 VT 350 PEEP 10 FIO2 100% ALARMS ON AND AUDIBLE BVM AT HOB B\S ARE CLEAR BILATERALLY, VENT IS PLUGGED INTO RED OUTLET,
--- NOTE | 2020-08-16 10:10 | NUR ---
CAME TO RO 108AFTER PT. WAS INTUBATED AND CONNECTED TO VENT,
[2020-08-16] MEDS ORDERED: PROPOFOL 1000 MG/100 ML PREMIX 100 ML IV ONE (10:11)
--- NOTE | 2020-08-16 10:13 | NUR ---
GAVE REPORT TO ICU NURSE PATIENT INTUBATED AND TRANSFERRED TO ICU .
--- NOTE | 2020-08-16 10:15 | NUR ---
RECEIVED REPORT FROM PAVEL .
--- NOTE | 2020-08-16 10:30 | NUR ---
OGT INSERTED . ABEL CATH INSERTED.
--- NOTE | 2020-08-16 11:10 | NUR ---
RECEIVED CALL FROM RADIOLOGY SAID THAT PT. HAS PNEUMOTHORAX ON BOTH SIDE. DR WEBSTER AND VICKI WAS PAGED
--- NOTE | 2020-08-16 11:45 | NUR ---
DR. COHEN AT BEDSIDE WILL INSERT HHEST TUBE.
--- NOTE | 2020-08-16 12:02 | NUR ---
abg drawn by Amadou browning and results given to and changed rr to 20
--- NOTE | 2020-08-16 12:24 | NUR ---
(08/16/20) RD INITIAL ASSESSMENT COMPLETED PLEASE REFER TO NUTRITION ASSESSMENT UNDER CARE ACTIVITY FOR ESTIMATED NUTRITIONAL NEEDS. RD RECOMMENDATIONS: 1. CONTINUE NPO MEDICALLY APPROPRIATE. 2. IF/WHEN ABLE TO INITIATE TUBE FEEDINGS, CONSIDER NEPRO AT 35 ML/HR WITH FWF PER MD. TF NEPRO AT 35 ML/HR WILL PROVIDE 840 ML TOTAL VOLUME, 1512 KCAL, 68 GM PROTEIN, AND 611 ML FREE WATER, WHICH WILL MEET 80% EST KCAL AND 89% EST PROTEIN NEEDS. 3. CONSULT RDN PRN. 4. RD WILL F/U 2-3 DAYS; HIGH RISK. VERONICA GUZMÁN, MS, RDN
[2020-08-16] MEDS ORDERED: WATER STERILE 0 ML MC ONE (13:09)
--- NOTE | 2020-08-16 13:45 | NUR ---
DR. COHEN AT BEDSIDE , INSERTED CHEST TUBE RT SIDE AND LT SIDE SUCCESFULLY, .
--- NOTE | 2020-08-16 14:20 | NUR ---
TRANSFER TO RM 130 REPORT GIVE TO RADHA.
--- NOTE | 2020-08-16 14:20 | NUR ---
TRANS IN FROM MED-SURG THIS 60 Y.O MALE S/P INTUBATION.ON TRANSFER PT SEDATED W/ PROPOFOL DRIP. W/ BILATERAL CHEST TUBES CONNECTED TO LOW INTERMITTENT SUCTION.HOOKED TO MAINTENANCE JOURNEYMAN AND HD RN AND INITIATED HEMODIALYSIS.
[2020-08-16] MEDS ORDERED: NOREPINEPHRINE 4 MG/4 ML VIAL IV ONE (15:07)
--- NOTE | 2020-08-16 16:15 | NUR ---
HEMODIALYSIS COMPLETED OBTAINED 2.1 L AN OUTPUT.STILL ON PROPOFOL DRIP.PT WAKING UP AND ON BILATERAL SOFT WRIST RESTRAINTS TO PROTECT AIRWAY.OPENS EYES WHEN AWAKE AND CLOSES EYES WHEN CALLED.
[2020-08-16] MEDS: PROPOFOL 1000 MG/100 ML PREMIX 100 ML IV PRN (17:48)
--- NOTE | 2020-08-16 18:36 | NUR ---
BED BATH DONE. REPOSITIONED AFTER MAINTAINED ON 30 DEGREES HOB TO FACILITATE EASY BREATHING AND PREVENT ASPIRATION.ALL NEEDS ATTENDED AND MET DURING THE SHIFT.CONDITION UNCHANGED. TO BE ENDORSED TO ACCIDENT EXAMINER RN FOR FURTHER CARE.
--- NOTE | 2020-08-16 19:50 | NUR ---
PT IS RASS +2, CALLED DR SILVA AND PER DR SILVA, ORDER MIDAZOLAM DRIP.
--- NOTE | 2020-08-16 20:00 | NUR ---
RECEIVED REPORT FROM LILY RUSSELL. PT IS ETT TO VENT. TITRATE TO RASS -3. FIO2 95%, TV: 500, PEEP: 10, AND RATE OF 20. CURRENT SPO2 85%. PT HAS RT FA 20g RUNNING PROPOFOL 30 MCG/KG/MIN AND LEVOPHED 20 MCG/MIN. ASYMPTOMATIC AND PATENT. PT HAS RT UPPER CHEST/MIDCLAVICULAR HD CATH. PT HAS BILATERAL CHEST TUBES CONNECTED TO LOW INTERMITTENT SUCTION, DRAINAGE: 0. OG TUBE IN PLACE, AUSCULTATED PLACEMENT CONFIRMATION, RESIDUAL 220ML OF DARK BROWN LIQUID. PT IS NPO AT THIS TIME. ABEL CATHETER IS IN PLACE, DRAINING TO GRAVITY. SLIGHT SUBCUTANEOUS EMPHYSEMA NOTED TO LT FA, SKIN OTHERWISE WARM DRY AND INTACT. BED IS LOW AND LOCKED POSITION, WITH HOB 30 DEG., SAFETY MEASURES IN PLACE, WILL CONT TO MONITOR CLOSELY. Addendum: 08/17/20 at 0134 by Vicki Terrazas RN RN BILATERAL WRIST RESTRAINTS
[2020-08-16] MEDS: MIDAZOLAM MDV 100 MG in NACL 0.9% 80 ML IV PRN (20:40)
--- NOTE | 2020-08-16 21:30 | NUR ---
PICC LINE NURSE ON UNIT, PER PICC LINE NURSE, WANTS CONFIRMATION FROM NEPHRO BEFORE PROCEDURE. CALLED WAREHOUSE RECEIVING CLERK MD, DR BARBOSA, PER DR BARBOSA, HE IS NOT COMFORTABLE TO GIVE CONFIRMATION AT THIS TIME. WILL HOLD OFF PICC LINE PLACEMENT UNTIL TOMORROW AFTER MD ROUNDS.
[2020-08-16] MEDS: SIMVASTATIN 40 MG TAB PO SCH (22:32)
[2020-08-16] MEDS: NOREPINEPHRINE 4 MG in DEXTROSE 5% 250 ML IV PRN (22:38)
[2020-08-16] MEDS ORDERED: CRUSHER, PILL MC ONE (23:13)
[2020-08-17] VITALS (26 sets, daily range): BP systolic 79–149; BP diastolic 36–73
--- NOTE | 2020-08-17 | NUR ---
PT IS RASS -3, PT HAS OLD DRAINAGE AT INSERTION SITE ON LEFT CHEST TUBE. REINFORCED WITH ABDOMINAL BANDAGE. SAFETY MEASURES IN PLACE, WILL CONT TO ASSESS.
[2020-08-17] MEDS: PROPOFOL 1000 MG/100 ML PREMIX 100 ML IV PRN ×5 (01:34→20:50)
--- NOTE | 2020-08-17 02:00 | NUR ---
NO S/S OF DISTRESS NOTED. BED IS LOW AND LOCKED POSITION, WITH HOB 30 DEG., SAFETY MEASURES IN PLACE, WILL CONT TO MONITOR CLOSELY.
[2020-08-17] MEDS ORDERED: NOREPINEPHRINE 4 MG/4 ML VIAL IV ONE ×2 (03:10→07:30)
[2020-08-17] MEDS: NOREPINEPHRINE 4 MG in DEXTROSE 5% 250 ML IV PRN ×5 (03:24→17:00)
--- NOTE | 2020-08-17 04:00 | NUR ---
ROUTINE CARE GIVEN, CHG BATH, ABEL CARE, NEW BLANKETS AND GOWN. PT TOLERATED WELL. BED IS LOW AND LOCKED POSITION, WITH HOB 30 DEG., SAFETY MEASURES IN PLACE, WILL CONT TO MONITOR CLOSELY
--- NOTE | 2020-08-17 06:30 | NUR ---
PTs LEFT CHEST TUBE DRAINAGE IS 35ML OF RED DRAINAGE. RIGHT CHEST TUBE 1ML OF CLEAR FLUID.
[2020-08-17] MEDS: BLOOD GLUCOSE MONITORING 1 DEV DEV FS SCH ×4 (07:30→20:59)
--- NOTE | 2020-08-17 07:50 | NUR ---
RECEIVED REPORT FROM BONE PROCESS OPERATOR NURSE. PATIENT IN CRITICAL CONDITION. WILL CONTINUE TO MONITOR.
[2020-08-17] MEDS: SEVELAMER CARBONATE 800 MG TAB PO SCH ×3 (08:50→17:35)
[2020-08-17] MEDS: ASCORBIC ACID 500 MG TAB PO SCH (08:50)
[2020-08-17] MEDS: ZINC SULF 220 MG CAP PO SCH (08:50)
[2020-08-17] MEDS: lisinopriL 5 MG TAB PO SCH (08:53)
[2020-08-17] MEDS: APIXABAN 2.5 MG TAB PO SCH ×2 (08:53→21:40)
[2020-08-17] MEDS: ASPIRIN 325 MG TAB PO SCH (08:53)
[2020-08-17] MEDS: amLODIPine 5 MG TAB PO SCH (08:53)
[2020-08-17] MEDS: INSULIN LISPRO SLIDING SCALE 100 UNITS/ML VIAL SUBQ PRN ×4 (08:54→20:58)
--- NOTE | 2020-08-17 08:54 | NUR ---
SCHEDULED MEDICATIONS DUE GIVEN. WILL CONTINUE TO MONITOR.
--- NOTE | 2020-08-17 08:55 | NUR ---
ELIQUIS AND ASPIRIN NOT GIVEN AT THIS TIME DUE TO CHEST TUBE SITE BLEEDING. WILL CONTINUE TO MONITOR.
--- NOTE | 2020-08-17 12:56 | NUR ---
ABG DRAWN ON LR WITHOUT INCIDENT AND RESULTS GIVEN TO WITH CHANGES MADE TO VENT INCREASE RR TO 24
--- NOTE | 2020-08-17 13:37 | NUR ---
SCHEDULED MEDICATIONS DUE GIVEN. WILL CONTINUE TO MONITOR.
--- NOTE | 2020-08-17 15:00 | NUR ---
CLEANED AND REPOSITIONED PATIENT. BOTH CHEST TUBE INSERTION SITE, LEFT GREATER THAN RIGHT, BLEEDING A LITTLE AMOUNT. REINFORCED DRESSING. PATIENT TOLERATED WELL. WILL CONTINUE TO MONITOR.
--- NOTE | 2020-08-17 17:52 | NUR ---
PICCLINE NURSE AWARE OF THE PICCLINE ORDER
--- NOTE | 2020-08-17 20:00 | NUR ---
RECEIVED REPORT FROM LILY RUSSELL. PT IS ETT TO VENT. TITRATE TO RASS -3. FIO2 95%, TV: 500, PEEP: 10, AND RATE OF 20. CURRENT SPO2 94%. PT HAS RT FA 20g RUNNING PROPOFOL 40 MCG/KG/MIN, LEVOPHED 12 MCG/MIN, VERSED 2MG/HR, ASYMPTOMATIC AND PATENT. PT HAS RT UPPER CHEST/MIDCLAVICULAR HD CATH. PT HAS BILATERAL CHEST TUBES CONNECTED TO LOW INTERMITTENT SUCTION, DRAINAGE NOTED IN BOTH CHEST TUBES. PER LILY RN, LEFT SIDE CHEST TUBE DRESSING CHANGED AND REINFORCED NO DRAINAGE NOTED AT THIS TIME. OG TUBE IN PLACE, AUSCULTATED PLACEMENT CONFIRMATION, RESIDUAL 10ML OF DARK BROWN LIQUID. ABEL CATHETER IS IN PLACE, DRAINING TO GRAVITY. BILATERAL WRIST RESTRAINTS, SKIN WARM DRY AND INTACT. BED IS LOW AND LOCKED POSITION, WITH HOB 30 DEG., SAFETY MEASURES IN PLACE, WILL CONT TO MONITOR CLOSELY.
--- NOTE | 2020-08-17 20:30 | NUR ---
PICC LINE NURSE ON UNIT FOR PICC LINE INSERTION.
[2020-08-17] MEDS: SIMVASTATIN 40 MG TAB PO SCH (21:40)
--- NOTE | 2020-08-17 21:45 | NUR ---
PER PICC LINE NURSE, OKAY TO USE PICC LINE.
--- NOTE | 2020-08-17 22:00 | NUR ---
LEFT SIDE CHEST TUBE HAS SANGUINOUS DRAINAGE FROM THE EDGE OF THE DRESSING NOTED AFTER PICC LINE INSERTION. REINFORCED AND WILL CONT TO ASSESS.
[2020-08-18] VITALS (27 sets, daily range): BP systolic 80–171; BP diastolic 31–72
--- NOTE | 2020-08-18 | NUR ---
ADJUSTED PILLOWS, NO MORE DRAINAGE AT THE INSERTION/DRESSING SITE NOTED. WILL CONT TO ASSESS.
[2020-08-18] MEDS: NOREPINEPHRINE 4 MG in DEXTROSE 5% 250 ML IV PRN ×3 (00:13→17:42)
[2020-08-18] MEDS: PROPOFOL 1000 MG/100 ML PREMIX 100 ML IV PRN ×3 (02:15→21:06)
--- NOTE | 2020-08-18 02:30 | NUR ---
PREPPED FEEDING, AND CHECKED RESIDUAL WHICH WAS 40ML OF DARK BROWN LIQUID. WILL HOLD TUBE FEEDING FOR THE REST OF THE SHIFT.
--- NOTE | 2020-08-18 04:30 | NUR ---
RECHECKED RESIDUAL: 20ML OF DARK BROWN RESIDUAL NOTED, FEEDING HELD AT THIS TIME. WILL CONT TO ASSESS.
--- NOTE | 2020-08-18 06:00 | NUR ---
NO S/S OF DISTRESS NOTED. BED IS LOW AND LOCKED POSITION, WITH HOB 30 DEG., SAFETY MEASURES IN PLACE, WILL CONT TO MONITOR CLOSELY.
[2020-08-18 06:13] LABS: BASOPHILS % (AUTO) 0.1 % (0.0-2.0); HEMATOCRIT 24.2 % (36-52); HEMOGLOBIN 8.1 g/dL (12.0-18.0); LYMPHOCYTES # (AUTO) 0.4 K/uL (2.0-11.5); LYMPHOCYTES % (AUTO) 2.3 % (20.5-51.1); MEAN CORPUSCULAR HEMOGLOBIN 32 pg (27-31); MEAN CORPUSCULAR HGB CONC 33 g/dL (33-37); MEAN CORPUSCULAR VOLUME 97.4 fL (80-94); MONOCYTES # (AUTO) 0.4 K/uL (0.8-1.0); MONOCYTES % (AUTO) 2.4 % (1.7-9.3); NEUTROPHILS # (AUTO) 17.3 K/uL (1.8-7.7); NEUTROPHILS % (AUTO) 95.2 % (42.2-75.2); PLATELET COUNT (AUTO) 134 K/uL (140-450); RED BLOOD CELL COUNT(AUTO) 2.49 MIL/uL (4.20-6.10); RED CELL DISTRIBUTION WIDTH 13.8 % (11.6-13.7); WHITE BLOOD COUNT (AUTO) 18.2 K/uL (4.8-10.8)
[2020-08-18 07:01] LABS: MAGNESIUM 2.5 mg/dL (1.8-2.4); PHOSPHORUS 8.5 mg/dL (2.5-4.9)
[2020-08-18] MEDS: INSULIN LISPRO SLIDING SCALE 100 UNITS/ML VIAL SUBQ PRN ×5 (07:10→21:04)
[2020-08-18] MEDS: BLOOD GLUCOSE MONITORING 1 DEV DEV FS SCH ×4 (07:10→21:07)
--- NOTE | 2020-08-18 07:20 | NUR ---
REC'D PT ON VOCSN VENT SETTINGS AC 24 VT 350 PEEP 10 FIO2 100% ALARMS ON AND AUDIBLE AND VENT IS PLUGGED INTO RED OUTLET, SXN PT SMALL AMT OF WHITE SECRETIONS, B\S ARE DIMINISHED BILATERALLY PT IS ORALLY INTUBATED WITH 7.5 ETT SECURED AT 23CM PT IS RESTING
--- NOTE | 2020-08-18 07:22 | NUR ---
RECEIVED WINDOW-SIDE REPORT FROM REMOTE RECRUITER NURSE JANE FOR CONTINUITY OF CARE. PATIENT IS LYING COMFORTABLY ON BED, SEDATED RASS -3, DRY WEIGHT 74 KG. RESPIRATION EVEN, SHALLOW, AND UNLABORED ON ETT TO VENT, AC/PC FIO2 100%, RATE 24, PEEP 10, 350 TD VOLUME, SPO2 94% AT THIS TIME. IV ON RIGHT WRIST 20G, CLEAN AN INTACT, SALINE LOCKED. LEFT UPPER ARM PICC LINE RUNNING PROPOFOL AT 40 MCG/KG/MIN, LEVOPHED 8 MCG/MCG/MIN, VERSED 2 MG/HR AT REPORT. DIALYSIS TUNNELED CATH ON R UPPER CHEST, DRESSING CLEAN AND INTACT. OGT IN PLACE, NOT RUNNING AT THIS TIME DUE TO BLACK RESIDUAL RECEIVED PER REPORT. SKIN WARM TO TOUCH, DRY AND CLEAN. ABEL IN PLACE, DRAINING WITH GRAVITY, NO URINE IN BAG NOTED. BILATERAL SOFT WRIST RESTRAINTS IN PLACE, NO SIGNS OF INJURY. TRANSMISSION SUPERVISOR AND PULSE MONITOR IN PLACE. SAFETY MEASURES IN PLACE. HOB ELEVATED 30 DEGREE, BED IN LOW POSITION AND CALL LIGHT WITHIN REACH.
--- NOTE | 2020-08-18 08:20 | NUR ---
DR JAMESON IS ROUNDING ON PATIENT.
[2020-08-18] MEDS: SEVELAMER CARBONATE 800 MG TAB PO SCH ×3 (08:35→16:30)
[2020-08-18] MEDS: ASPIRIN 325 MG TAB PO SCH (08:35)
[2020-08-18] MEDS: ASCORBIC ACID 500 MG TAB PO SCH (08:36)
[2020-08-18] MEDS: APIXABAN 2.5 MG TAB PO SCH (08:36)
[2020-08-18] MEDS: amLODIPine 5 MG TAB PO SCH (08:36)
[2020-08-18] MEDS: ZINC SULF 220 MG CAP PO SCH (08:37)
[2020-08-18] MEDS: lisinopriL 5 MG TAB PO SCH (08:37)
[2020-08-18] MEDS: MIDAZOLAM MDV 100 MG in NACL 0.9% 80 ML IV PRN (09:05)
--- NOTE | 2020-08-18 09:08 | NUR ---
CHECKED OGT RESIDUAL RECEIVED 35 ML BLACK RESIDUAL, FLUSHED. ADMINISTERED SCHEDULED AM MEDS VIA OGT, FLUSHED BEFORE AND AFTER MEDS. HELD BP MEDS DUE TO PATIENT IS ON LEVOPHED DRIP. STARTED OGT FEEDING NEPRO AT 10 ML/HR AT THIS TIME. PROVIDED HYGIENE CARE, ORAL CARE, SUCTIONING, CHG BATH, ABEL CARE. WITH ASSIST, REPOSITIONED PATIENT, AND OFFLOADED PRESSURE WITH PILLOWS. CHEST TUBES STABLE, SECURE IN WATER SEALED BILATERALLY. CLEANING SPECIALIST IN PLACE. SAFETY MEASURES IN PLACE. HOB ELEVATED 35 DEGREE, BED IN LOW POSITION AND BED LOCKED.
--- NOTE | 2020-08-18 09:23 | NUR ---
DR BARRON IS ROUNDING ON PATIENT. INFORMED BLACK RESIDUAL 35 ML PULLED FROM OGT, PER DR BARRON, HOLD ALL ANTICOAGULANT FROM NOW ON AND NOTIFY ATTENDING PHYSICIAN. DR BARRON ALSO ORDERED TO TURN CHEST TUBES INTO SUCTIONING MODE. TURNED ON CHEST TUBES TO SUCTIONING PER ORDER.
[2020-08-18 10:15] LABS: ANION GAP 21.3 (8-16); CARBON DIOXIDE 17.6 mmol/L (21-32); POTASSIUM 4.9 mmol/L (3.5-5.1)
[2020-08-18 10:32] LABS: CREATININE 8.8 mg/dL (0.6-1.3)
--- NOTE | 2020-08-18 10:36 | NUR ---
RECEIVED CRITICAL LAB FOR CA 7.5, BUN 100, CR 8.8, GLUCOSE 406, UYEN BERRY, CUSTOMS INSPECTOR MD IS DR HILL, AWAITING FOR DR HILL TO CALL BACK.
--- NOTE | 2020-08-18 10:51 | NUR ---
DR JAMESON MADE AWARE OF BLOOD GLUCOSE 406 FROM AM LAB, RECEIVED ORDER FROM 14 UNIT [facility] SUB[facility].
--- NOTE | 2020-08-18 11:20 | NUR ---
RECEIVED A CALL BACK FROM DR HILL, AND NOTIFIED OF CRITICAL LABS, DR HILL WAS AWARE AND SAID, " I WILL ORDER DIALYSIS FOR TOMORROW".
--- NOTE | 2020-08-18 12:17 | NUR ---
BLOOD GLUCOSE 320, 8 UNIT HUMALOG COVERED. CHECKED OGT RESIDUAL RECEIVED 50 ML WHITE BROWNISH RESIDUAL, FLUSHED. ADMINISTERED SCHEDULED MED. REPOSITIONED PATIENT, OFFLOADED PRESSURE. PROVIDED ORAL CARE AND SUCTIONING. SAFETY MEASURES IN PLACE.
--- NOTE | 2020-08-18 13:16 | NUR ---
DR HILL IS ROUNDING ON PATIENT.
--- NOTE | 2020-08-18 13:24 | NUR ---
NOTIFIED SENAIT COMPENSATION PROGRAMS MANAGER THAT DR HILL JUST INPUT ORDER FOR DIALYSIS TODAY, SENAIT WAS AWARE.
--- NOTE | 2020-08-18 14:05 | NUR ---
[employer] NATIONAL SECRETARY IS AT BEDSIDE AND GETTING PATIENT READY FOR DIALYSIS.
--- NOTE | 2020-08-18 15:17 | NUR ---
PATIENT IS STILL IN DIALYSIS. GIRISH GRIP ASSEMBLER IS AT BEDSIDE, VITAL SIGNS CLOSELY MONITORING. SAFETY MEASURES IN PLACE.
--- NOTE | 2020-08-18 15:56 | NUR ---
PROVIDED 10,000 UNIT HEPARIN TO [facility] BRUSH MACHINE FEEDER TO FLUSH PORTS.
--- NOTE | 2020-08-18 16:31 | NUR ---
BLOOD GLUCOSE CHECKED 211, 4 UNIT HUMALOG COVERED. ADMINISTERED SCHEDULED MED VIA OGT, FLUSHED BEFORE AND AFTER MED. PATIENT IS STILL IN DIALYSIS AT THIS TIME. VITAL SIGNS CLOSELY MONITOR. SAFETY MEASURES IN PLACE.
--- NOTE | 2020-08-18 16:43 | NUR ---
DIALYSIS COMPLETED; REMOVED 1.5 L.
--- NOTE | 2020-08-18 19:14 | NUR ---
ENDORSED PATIENT TO FOOD SAFETY AUDITOR NURSE JANE FOR CONTINUITY OF CARE. SAFETY MEASURES IN PLACE.
--- NOTE | 2020-08-18 19:20 | NUR ---
TITRATED PT DOWN TO 85% FiO2. SATURATION MAINTAINED ABOVE 95%. WILL CONTINUE TO MONITOR
--- NOTE | 2020-08-18 20:00 | NUR ---
RECEIVED REPORT FROM LILY RUSSELL. PT IS ETT TO VENT. TITRATE TO RASS -3. FIO2 98%, TV: 350, PEEP: 5, AND RATE OF 24. CURRENT SPO2 100%. PT HAS RT FA 20g SALINE LOCK, ASYMPTOMATIC AND PATENT. MARGARITO PICC LINE RUNNING PROPOFOL 30 MCG/KG/MIN, LEVOPHED 6 MCG/MIN, VERSED 2MG/HR, ASYMPTOMATIC AND PATENT. PT HAS RT UPPER CHEST/MIDCLAVICULAR HD CATH. PT HAS BILATERAL CHEST TUBES CONNECTED TO LOW INTERMITTENT SUCTION, DRAINAGE NOTED IN BOTH CHEST TUBES. PER LILY RUSSELL, LEFT SIDE CHEST TUBE DRESSING CHANGED AND REINFORCED, SMALL AMOUNT OF SEROSANGUINEOUS DRAINAGE NOTED FROM DRESSING. RT CHEST TUBE DRY AND INTACT. OG TUBE IN PLACE, AUSCULTATED PLACEMENT CONFIRMATION, RESIDUAL 25ML OF LIGHT BROWN LIQUID. ABEL CATHETER IS IN PLACE, DRAINING TO GRAVITY. SKIN WARM DRY AND INTACT. BED IS LOW AND LOCKED POSITION, WITH HOB 30 DEG., SAFETY MEASURES IN PLACE, WILL CONT TO MONITOR CLOSELY. Addendum: 08/19/20 at 0612 by Vicki Terrazas RN RN OG TUBE TO FEEDING: NEPRO CURRENTLY AT 10ML/HR WITH A GOAL OF 35 ML/HR
[2020-08-18] MEDS: SIMVASTATIN 40 MG TAB PO SCH (21:06)
--- NOTE | 2020-08-18 22:00 | NUR ---
REPOSITIONED PATIENT, PT TOLERATED WELL. NO S/S OF DISTRESS NOTED. BED IS LOW AND LOCKED POSITION, WITH HOB 30 DEG., SAFETY MEASURES IN PLACE, WILL CONT TO MONITOR CLOSELY.
[2020-08-19] VITALS (27 sets, daily range): BP systolic 96–154; BP diastolic 39–55
--- NOTE | 2020-08-19 | NUR ---
DECREASED LEVOPHED, SMALL AMOUNT OF SANGUINOUS DRAINAGE NOTED FROM LEFT CHEST TUBE DRESSING. WILL CONT TO ASSESS
--- NOTE | 2020-08-19 02:00 | NUR ---
NO S/S OF DISTRESS NOTED. REPOSITIONED PT, PT TOLERATED IT WELL. SCANT SANGUINOUS DRAINAGE FROM LEFT CHEST TUBE NOTED. REINFORCED DRESSING.
[2020-08-19] MEDS: PROPOFOL 1000 MG/100 ML PREMIX 100 ML IV PRN ×3 (03:50→19:05)
--- NOTE | 2020-08-19 04:00 | NUR ---
ROUTINE CARE GIVEN, CHG BATH, ABEL CARE, NEW BLANKETS AND GOWN. CLEANED AND APPLIED NEW DRESSING TO LEFT CHEST TUBE, AND REINFORCED RIGHT CHEST TUBE DRESSING. PT TOLERATED WELL. BED IS LOW AND LOCKED POSITION, WITH HOB 30 DEG., SAFETY MEASURES IN PLACE, WILL CONT TO MONITOR CLOSELY
--- NOTE | 2020-08-19 06:11 | NUR ---
OG TUBE TO FEEDING: NEPRO CURRENTLY AT 10ML/HR WITH A GOAL OF 35 ML/HR Addendum: 08/19/20 at 0612 by Vicki Terrazas RN RN OG TUBE CURRENTLY IS AT 20ML/HR, RESIDUAL 0ML
[2020-08-19] MEDS: BLOOD GLUCOSE MONITORING 1 DEV DEV FS SCH ×4 (06:54→21:28)
[2020-08-19] MEDS: INSULIN LISPRO SLIDING SCALE 100 UNITS/ML VIAL SUBQ PRN ×4 (06:54→21:28)
--- NOTE | 2020-08-19 07:30 | NUR ---
RECEIVED WINDOW-SIDE REPORT FROM SHOW HOST OR HOSTESS NURSE FOR CONTINUITY OF CARE. PATIENT IS LYING COMFORTABLY ON BED, SEDATED RASS -3, RESPIRATION EVEN, SHALLOW, AND UNLABORED ON ETT TO VENT, AC/PC FIO2 85%, RATE 24, PEEP 5, 350 TD VOLUME, SPO2 96% AT THIS TIME. IV ON RIGHT WRIST 20G, CLEAN AN INTACT, SALINE LOCKED. LEFT UPPER ARM PICC LINE RUNNING PROPOFOL AT 40 MCG/KG/MIN, VERSED 2 MG/HR AT REPORT. DIALYSIS TUNNELED CATH ON R UPPER CHEST, DRESSING CLEAN AND INTACT. OGT IN PLACE, RUNNING AT 20. RESIDUAL 50 ML, SKIN WARM TO TOUCH, DRY AND CLEAN. ABEL IN PLACE, DRAINING WITH GRAVITY, NO URINE IN BAG NOTED. CENTRIFUGAL STATION OPERATOR AND PULSE MONITOR IN PLACE. SAFETY MEASURES IN PLACE. HOB ELEVATED 30 DEGREE, BED IN LOW POSITION AND CALL LIGHT WITHIN REACH.
[2020-08-19] MEDS: SEVELAMER CARBONATE 800 MG TAB PO SCH ×3 (08:00→17:27)
--- NOTE | 2020-08-19 08:18 | NUR ---
DR. BARRON ROUNDED ON PATIENT AND WAS UPDATED ON PATIENT CONDITION.
[2020-08-19 08:26] LABS: ANION GAP 18.1 (8-16); CARBON DIOXIDE 19.8 mmol/L (21-32); POTASSIUM 4.9 mmol/L (3.5-5.1)
[2020-08-19 08:46] LABS: MAGNESIUM 2.2 mg/dL (1.8-2.4); PHOSPHORUS 7.9 mg/dL (2.5-4.9)
[2020-08-19] MEDS: amLODIPine 5 MG TAB PO SCH (09:00)
[2020-08-19] MEDS: lisinopriL 5 MG TAB PO SCH (09:00)
[2020-08-19] MEDS: ASPIRIN 325 MG TAB PO SCH (09:00)
--- NOTE | 2020-08-19 09:50 | NUR ---
CRITICAL LAB BUN 80, CR 6.9, TREND SHERIF, NOT REPORTED.
[2020-08-19] MEDS: ASCORBIC ACID 500 MG TAB PO SCH (09:51)
[2020-08-19] MEDS: ZINC SULF 220 MG CAP PO SCH (09:51)
--- NOTE | 2020-08-19 10:15 | NUR ---
CHECKED OGT RESIDUAL, 50ML, FLUSHED BEFORE AND AFTER, ADMINISTERED SCHEDULED MEDS, INCREASED FEEDING RATE FROM 20ML TO 30ML, RUNNING NEPHRO, ETT TO VENT, AC/VC FIO2 85 RATE 24 PEEP 5 TD 350 SPO2 AT 94, HYGIENE CARE, ORAL CARE, ABEL, CARE PROVIDED, MARGARITO PICC RUNNING PROPOFOL AT 30 MCG/KG/ML, LEVOPHED AT 2MCG/ML, VERSED AT 2MG/HR, ABEL CATH TO GRAVITY, YELLOW URINE IN BAG, BED IN LOW POSITION, SAFETY MEASURES IN PLACE, WILL CONTINUE TO MONITOR.
[2020-08-19 10:56] LABS: CREATININE 6.9 mg/dL (0.6-1.3)
[2020-08-19 11:34] LABS: LYMPHOCYTES # (AUTO) 0.5 K/uL (2.0-11.5); LYMPHOCYTES % (AUTO) 2.1 % (20.5-51.1); MEAN CORPUSCULAR HEMOGLOBIN 32 pg (27-31); MEAN CORPUSCULAR HGB CONC 33 g/dL (33-37); MEAN CORPUSCULAR VOLUME 98.3 fL (80-94); MONOCYTES # (AUTO) 0.9 K/uL (0.8-1.0); NEUTROPHILS # (AUTO) 20.6 K/uL (1.8-7.7); NEUTROPHILS % (AUTO) 93.9 % (42.2-75.2); PLATELET COUNT (AUTO) 203 K/uL (140-450); RED BLOOD CELL COUNT(AUTO) 1.91 MIL/uL (4.20-6.10); WHITE BLOOD COUNT (AUTO) 21.9 K/uL (4.8-10.8)
[2020-08-19 11:42] LABS: HEMATOCRIT 18.8 % (36-52); HEMOGLOBIN 6.1 g/dL (12.0-18.0)
--- NOTE | 2020-08-19 11:52 | NUR ---
BLOOD GLUCOSE 332, HUMALOG 8 UNIT COVERED.
--- NOTE | 2020-08-19 12:00 | NUR ---
RECEIVED CRITICAL LAB FOR HGB 6.1 AND HCT 18.8, DR JAMESON MADE AWARE. RECEIVED TORB ORDER FOR 1 UNIT RBC TRANSFUSION.
--- NOTE | 2020-08-19 12:00 | NUR ---
CHECKED OGT RESIDUAL, 50 ML, FLUSHED BEFORE AND AFTER, ADMINISTERED AFTERNOON SCHEDULED MEDS, SAFETY MEASURES IN PLACE, BED IN LOW POSITION, HOB ELEVATED TO 30 DEGREES, WILL CONTINUE TO MONITOR.
--- NOTE | 2020-08-19 12:32 | NUR ---
RECEIVED A CALL FROM PATIENT'S SON NANI, PROVIDED UPDATED, NANI WAS AWARE. OBTAINED BLOOD TRANSFUSION CONSENT WITH ANOTHER RN, NANI WAS AWARE AND AGREED FOR BLOOD TRANSFUSION.
[2020-08-19] MEDS ORDERED: DOCUSATE 100 MG/10 ML UDC GT PRN (14:50)
--- NOTE | 2020-08-19 15:54 | NUR ---
08/19/20 RD FOLLOW UP COMPLETED PLEASE REFER TO NUTRITION ASSESSMENT UNDER CARE ACTIVITY FOR ESTIMATED NUTRITIONAL NEEDS. 1. CONSIDER NEPRO AT 40 ML/HR WITH FWF PER MD. - PROVIDE 960 ML TOTAL VOLUME, 1728 KCAL, 78 GM PROTEIN, AND 697 ML FREE WATER, WHICH WILL MEET 100% EST KCAL AND 88% EST PROTEIN NEEDS. 2. CONSULT RDN PRN. 3. RD WILL F/U 2-3 DAYS; HIGH RISK CARROLL ALAS RD
[2020-08-19] MEDS: NOREPINEPHRINE 4 MG in DEXTROSE 5% 250 ML IV PRN (16:12)
--- NOTE | 2020-08-19 17:00 | NUR ---
PATIENT IS IN DIALYSIS AT THIS TIME. [employer] SMOKE AND FLAME SPECIALIST IS BY BEDSIDE. SAFETY MEASURES IN PLACE.
--- NOTE | 2020-08-19 17:45 | NUR ---
1 UNIT RBC TRANSFUSE COMPLETED DURING DIALYSIS, NO SIGNS OF ADVERSE REACTION NOTED.
--- NOTE | 2020-08-19 17:51 | NUR ---
DR FENG IS ROUNDING ON PATIENT AND INFORMED THAT PATIENT'S WBC 21.9, PATIENT IS NOT ON ANY ABX AT THIS TIME. DR FENG WAS AWARE AND SAID WILL LOOK INTO IT.
--- NOTE | 2020-08-19 18:26 | NUR ---
10,000 UNIT HEPARIN PROVIDED TO [employer] SERVICES REPRESENTATIVE TO FLUSH PORTS.
--- NOTE | 2020-08-19 20:00 | NUR ---
RECEIVED REPORT FROM LILY RUSSELL. PT IS ETT TO VENT. TITRATE TO RASS -3. A/C VC FIO2 100%, TV: 350, PEEP: 10, AND RATE OF 24. CURRENT SPO2 86%. PT HAS RT FA 20g SALINE LOCK, ASYMPTOMATIC AND PATENT. MARGARITO PICC LINE RUNNING PROPOFOL 30 MCG/KG/MIN, LEVOPHED 4 MCG/MIN, VERSED 2MG/HR, ASYMPTOMATIC AND PATENT. PT HAS RT UPPER CHEST/MIDCLAVICULAR HD CATH. PT HAS BILATERAL CHEST TUBES CONNECTED TO LOW INTERMITTENT SUCTION, DRAINAGE NOTED IN BOTH CHEST TUBES. LT CHEST TUBE AND RT CHEST TUBE DRY AND INTACT. OG TUBE IN PLACE, OG TUBE TO FEEDING: NEPRO CURRENTLY AT 30ML/HR WITH A GOAL OF 35 ML/HR AUSCULTATED PLACEMENT CONFIRMATION, RESIDUAL 0ML. ABEL CATHETER IS IN PLACE, DRAINING TO GRAVITY. SKIN WARM DRY AND INTACT. BED IS LOW AND LOCKED POSITION, WITH HOB 30 DEG., SAFETY MEASURES IN PLACE, WILL CONT TO MONITOR CLOSELY.
[2020-08-19 21:08] LABS: BASOPHILS # (AUTO) 0.2 K/uL (0.00-0.22); BASOPHILS % (AUTO) 0.9 % (0.0-2.0); EOSINOPHILS % (AUTO) 0.1 % (0.0-4.0); HEMATOCRIT 24.7 % (36-52); HEMOGLOBIN 8.2 g/dL (12.0-18.0); LYMPHOCYTES # (AUTO) 0.2 K/uL (2.0-11.5); LYMPHOCYTES % (AUTO) 0.9 % (20.5-51.1); MEAN CORPUSCULAR HEMOGLOBIN 31 pg (27-31); MEAN CORPUSCULAR HGB CONC 33 g/dL (33-37); MEAN CORPUSCULAR VOLUME 95.1 fL (80-94); MONOCYTES % (AUTO) 4.5 % (1.7-9.3); NEUTROPHILS # (AUTO) 20.1 K/uL (1.8-7.7); NEUTROPHILS % (AUTO) 93.6 % (42.2-75.2); PLATELET COUNT (AUTO) 216 K/uL (140-450); RED CELL DISTRIBUTION WIDTH 15.8 % (11.6-13.7); WHITE BLOOD COUNT (AUTO) 21.4 K/uL (4.8-10.8)
[2020-08-19] MEDS: SIMVASTATIN 40 MG TAB PO SCH (21:28)
--- NOTE | 2020-08-19 21:30 | NUR ---
PTs RESIDUAL 0ML. INCREASED FEEDING TO GOAL RATE OF 35ML/HR. WILL CONT TO ASSESS
--- NOTE | 2020-08-19 22:00 | NUR ---
NO S/S OF DISTRESS NOTED. REPOSITIONED PT, PT TOLERATED IT WELL. NO DRAINAGE NOTED AT THIS TIME. OXYGEN SATURATION IS CURRENTLY 90%. WILL CONT TO ASSESS
[2020-08-20] VITALS (26 sets, daily range): BP systolic 93–119; BP diastolic 40–98
--- NOTE | 2020-08-20 | NUR ---
NO S/S OF DISTRESS NOTED. REPOSITIONED PT, PT TOLERATED IT WELL. BILATERAL CHEST TUBE DRESSINGS ARE DRY AND INTACT. SAFETY MEASURES IN PLACE, WILL CONT TO ASSESS
--- NOTE | 2020-08-20 02:00 | NUR ---
PTs CONDITION REMAINS UNCHANGED. PTs OXYGEN SATURATION IS CURRENTLY 92%. WILL CONT TO MONITOR.
--- NOTE | 2020-08-20 04:00 | NUR ---
ROUTINE CARE GIVEN, CHG BATH, ABEL CARE, NEW BLANKETS AND GOWN. PT TOLERATED WELL. BILATERAL CHEST TUBE DRESSINGS DRY AND INTACT. BED IS LOW AND LOCKED POSITION, WITH HOB 30 DEG., SAFETY MEASURES IN PLACE, WILL CONT TO MONITOR CLOSELY
[2020-08-20] MEDS: PROPOFOL 1000 MG/100 ML PREMIX 100 ML IV PRN ×3 (04:18→20:22)
--- NOTE | 2020-08-20 06:00 | NUR ---
NO S/S OF DISTRESS NOTED. BED IS LOW AND LOCKED POSITION, WITH HOB 30 DEG., SAFETY MEASURES IN PLACE, WILL CONT TO MONITOR CLOSELY.
[2020-08-20 06:06] LABS: HEMATOCRIT 21.5 % (36-52); HEMOGLOBIN 7.2 g/dL (12.0-18.0); MEAN CORPUSCULAR HEMOGLOBIN 32 pg (27-31); MEAN CORPUSCULAR HGB CONC 34 g/dL (33-37); MEAN CORPUSCULAR VOLUME 94.9 fL (80-94); PLATELET COUNT (AUTO) 190 K/uL (140-450); RED BLOOD CELL COUNT(AUTO) 2.27 MIL/uL (4.20-6.10); RED CELL DISTRIBUTION WIDTH 16.6 % (11.6-13.7); WHITE BLOOD COUNT (AUTO) 22.5 K/uL (4.8-10.8)
[2020-08-20] MEDS: BLOOD GLUCOSE MONITORING 1 DEV DEV FS SCH ×4 (06:21→20:45)
[2020-08-20] MEDS: INSULIN LISPRO SLIDING SCALE 100 UNITS/ML VIAL SUBQ PRN ×3 (06:21→20:46)
[2020-08-20 06:51] LABS: ALBUMIN 1.4 g/dL (3.4-5.0); ANION GAP 17.3 (8-16); MAGNESIUM 1.9 mg/dL (1.8-2.4); PHOSPHORUS 8.6 mg/dL (2.5-4.9); POTASSIUM 5.3 mmol/L (3.5-5.1); TOTAL BILIRUBIN 0.4 mg/dL (0.0-1.0)
--- NOTE | 2020-08-20 07:10 | NUR ---
REPOST GIVEN BY HUMAN RESOURCES OFFICER RN.PT. SEDATED ON PROPOFOL AND VERSED DRIP.ON LEVOPHED DRIP @ 4MCG/MIN.ORALLY INTUBATED TO VENTILATOR AND W/ BILATERAL CHEST TUBES.W/ PERMACATH ON THE RT CHEST W/ DRESSING CLEAN AND INTACT. KEPT ON CLOSE WATCH.
[2020-08-20 07:36] LABS: LYMPHOCYTES % (MANUAL) 4 % (20-46); MONOCYTES % (MANUAL) 5 % (5-12)
--- NOTE | 2020-08-20 07:40 | NUR ---
PATIENT HAS DIALYSIS ORDER. SENAIT 1ST PRESSMAN NOTIFIED.
[2020-08-20] MEDS: SEVELAMER CARBONATE 800 MG TAB PO SCH ×3 (08:00→09:50)
[2020-08-20] MEDS: ASCORBIC ACID 500 MG TAB PO SCH (09:16)
[2020-08-20] MEDS: ASPIRIN 325 MG TAB PO SCH (09:16)
[2020-08-20] MEDS: lisinopriL 5 MG TAB PO SCH (09:17)
[2020-08-20] MEDS: amLODIPine 5 MG TAB PO SCH (09:19)
[2020-08-20] MEDS: ZINC SULF 220 MG CAP PO SCH (09:19)
--- NOTE | 2020-08-20 09:54 | NUR ---
PT. WITH LOW MARGARITA SCALE AT RISK, CONTINUE TO FOLLOW PRESSURE INJURY PREVENTION INTERVENTIONS. -TURN AND REPOSITION PATIENT Q 2H -ASSESS AND MONITOR SKIN CONDITION DURING POSITION CHANGE -OFFLOAD BILATERAL HEELS BY PLACING PILLOWS UNDER CALVES AT ALL TIMES, UNLESS OTHERWISE CONTRAINDICATED -PRESSURE REDISTRIBUTION BY PLACING PILLOWS AND OFFLOADING SACRALCOCCYX -KEEP SKIN CLEAN AND DRY AT ALL TIMES.
[2020-08-20] MEDS: NOREPINEPHRINE 4 MG in DEXTROSE 5% 250 ML IV PRN ×2 (12:44→20:23)
[2020-08-20] MEDS: MIDAZOLAM MDV 100 MG in NACL 0.9% 80 ML IV PRN (13:31)
[2020-08-20] MEDS: ALUMINUM HYDROXIDE 64 MG/ML BOTTLE PO SCH ×2 (13:41→17:00)
--- NOTE | 2020-08-20 14:00 | NUR ---
TEXTILE CONVERSION MANAGER CAME IN AND HEMODIALYSIS STARTED. PT'S BP REMAINED ON 100'S.KEPT ON CLOSE WATCH.
--- NOTE | 2020-08-20 17:30 | NUR ---
COMPLETE BED BATH DONE. REPOSITIONED AND MAINTAINED ON 30 DEGREES HOB TO FACILITATE EASY BREATHING AND PREVENT ASPIRATION.
--- NOTE | 2020-08-20 19:05 | NUR ---
ALL NEEDS ATTENDED AND MET DURING THE SHIFT,W/ PATENT CONTRAPTIONS CONDITION UNCHANGED. REPORT GIVEN TO DREW BUTT FOR CONTINUITY OF CARE.
[2020-08-20] MEDS: SIMVASTATIN 40 MG TAB PO SCH (20:21)
[2020-08-21] VITALS (27 sets, daily range): BP systolic 36–172; BP diastolic 14–82
[2020-08-21] MEDS: PROPOFOL 1000 MG/100 ML PREMIX 100 ML IV PRN ×3 (04:36→22:56)
--- NOTE | 2020-08-21 07:20 | NUR ---
RECEIVED REPORT FROM DREW WELSH PT STILL INTUBATED AND W/ PATENT CONTRAPTIONS.NOT IN ANY FORM OF DISTRESS.RESTING COMFORTABLY ON BED.
[2020-08-21] MEDS: INSULIN LISPRO SLIDING SCALE 100 UNITS/ML VIAL SUBQ PRN ×4 (07:33→22:57)
[2020-08-21] MEDS: BLOOD GLUCOSE MONITORING 1 DEV DEV FS SCH ×4 (07:33→21:00)
[2020-08-21] MEDS: SEVELAMER CARBONATE 800 MG TAB PO SCH ×3 (08:38→17:00)
[2020-08-21] MEDS: ASPIRIN 325 MG TAB PO SCH (08:39)
[2020-08-21] MEDS: amLODIPine 5 MG TAB PO SCH (08:41)
[2020-08-21] MEDS: ZINC SULF 220 MG CAP PO SCH (08:41)
[2020-08-21] MEDS: ASCORBIC ACID 500 MG TAB PO SCH (08:41)
[2020-08-21] MEDS: lisinopriL 5 MG TAB PO SCH (08:53)
[2020-08-21] MEDS: ALUMINUM HYDROXIDE 64 MG/ML BOTTLE PO SCH ×3 (08:54→17:00)
[2020-08-21 11:14] LABS: HEMATOCRIT 20.7 % (36-52); LYMPHOCYTES # (AUTO) 0.5 K/uL (2.0-11.5); MEAN CORPUSCULAR HGB CONC 33 g/dL (33-37); MONOCYTES # (AUTO) 1.4 K/uL (0.8-1.0); NEUTROPHILS % (AUTO) 92.3 % (42.2-75.2); RED BLOOD CELL COUNT(AUTO) 2.16 MIL/uL (4.20-6.10)
[2020-08-21 11:34] LABS: BASOPHILS # (AUTO) 0.1 K/uL (0.00-0.22); BASOPHILS % (AUTO) 0.2 % (0.0-2.0); MEAN CORPUSCULAR HEMOGLOBIN 31 pg (27-31); MEAN CORPUSCULAR VOLUME 95.5 fL (80-94); MONOCYTES % (AUTO) 5.5 % (1.7-9.3); NEUTROPHILS # (AUTO) 23.8 K/uL (1.8-7.7); PLATELET COUNT (AUTO) 240 K/uL (140-450); RED CELL DISTRIBUTION WIDTH 16.4 % (11.6-13.7)
[2020-08-21 11:42] LABS: ALBUMIN 1.2 g/dL (3.4-5.0); CARBON DIOXIDE 23.4 mmol/L (21-32); MAGNESIUM 2.4 mg/dL (1.8-2.4); PHOSPHORUS 8.8 mg/dL (2.5-4.9); POTASSIUM 5.4 mmol/L (3.5-5.1); TOTAL BILIRUBIN 0.5 mg/dL (0.0-1.0)
[2020-08-21 11:48] LABS: CREATININE 6.1 mg/dL (0.6-1.3)
[2020-08-21 12:05] LABS: HEMOGLOBIN 6.8 g/dL (12.0-18.0); WHITE BLOOD COUNT (AUTO) 25.8 K/uL (4.8-10.8)
--- NOTE | 2020-08-21 12:30 | NUR ---
SEEN AND EXAMINED BY DR. HILL AWARE OF PT'S LAB RESULTS AND ORDERED FOR HEMODIALYSIS. SPOKE W/ PT'S SON AND CLAIMED DO EVERYTHING MEANS FULL CODE.PT' IS FOR TRANSFUSION OF 1 UNIT OF PACKED RBC'S. DURING DIALYSIS.
[2020-08-21] MEDS: NOREPINEPHRINE 16 MG in DEXTROSE 5% 250 ML IV PRN (14:33)
--- NOTE | 2020-08-21 15:00 | NUR ---
COMPLETE BED BATH DONE .REPOSITIONED AND PT'S BP ON A VERY LOW WENT TO SBP39. ALLED FOR DR. THOMPSON AND STARTED NEOSYNEPHRINE @ 50MCG/MIN. KEPT ON CLOSE WATCH.ORAL CARE RENDED MAINTAINED ON 30 DEGREES HOBTO FACILITATE EASY BREATHING AND PREVENT ASPIRATION.
[2020-08-21] MEDS ORDERED: PHENYLEPHRINE 40 MG in NACL 0.9% 250 ML IV PRN ×4 (15:30)
--- NOTE | 2020-08-21 19:00 | NUR ---
ALL NEEDS ATTENDED AND MET DURING THE SHIFT. W/ PATENT CONTRAPTIONS.CONDITION STATUS QUO REPORT GIVEN TO DREW BUTT FOR CONTINUITY OF CARE.
[2020-08-21] MEDS: SIMVASTATIN 40 MG TAB PO SCH (21:00)
[2020-08-22] VITALS (25 sets, daily range): BP systolic 56–156; BP diastolic 35–100
[2020-08-22] MEDS: NOREPINEPHRINE 16 MG in DEXTROSE 5% 250 ML IV PRN (05:12)
[2020-08-22 06:50] LABS: HEMATOCRIT 23.2 % (36-52); HEMOGLOBIN 7.8 g/dL (12.0-18.0); MEAN CORPUSCULAR HEMOGLOBIN 31 pg (27-31); MEAN CORPUSCULAR HGB CONC 34 g/dL (33-37); MEAN CORPUSCULAR VOLUME 93.6 fL (80-94); PLATELET COUNT (AUTO) 231 K/uL (140-450); RED BLOOD CELL COUNT(AUTO) 2.48 MIL/uL (4.20-6.10); RED CELL DISTRIBUTION WIDTH 15.8 % (11.6-13.7)
[2020-08-22] MEDS: INSULIN LISPRO SLIDING SCALE 100 UNITS/ML VIAL SUBQ PRN ×3 (06:59→17:52)
[2020-08-22] MEDS: BLOOD GLUCOSE MONITORING 1 DEV DEV FS SCH ×3 (06:59→18:47)
--- NOTE | 2020-08-22 07:15 | NUR ---
RECEIVED BEDSIDE REPORT FROM REGULATORY SPECIALIST NURSE JOSE RN, PT SEDATED RASS-3, ON ETT TO VENT FI2O 85%, RATE 24, PEEP 7. CHEST TUBE TO R AND L PATENT INTACT, TO LOW SUCTION, PICC LINE TO R UPPER ARM, PATENT INTACT, INFUSING LEVOPHED @ 22MCG/MIN, PROPOFOL @20MCG/KG/MIN, VERSED @ 3MG/HR, INFUSING WELL, IV TO R FA 20G PATENT INTACT, INFUSING WELL, R UPPER CHEST DIALYSIS CATH DRESSING CLEAN DRY AND INTACT, ABEL CATH IN PLACE DRAINING TO GRAVITY, INITIAL ASSESSMENT DONE , ALL SAFETY PRECAUTION MET, CALL LIGHT WITHIN REACH, WILL CONTINUE TO MONITOR.
[2020-08-22 07:57] LABS: WHITE BLOOD COUNT (AUTO) 29.2 K/uL (4.8-10.8)
[2020-08-22 07:58] LABS: LYMPHOCYTES % (MANUAL) 2 % (20-46); MONOCYTES % (MANUAL) 4 % (5-12)
[2020-08-22] MEDS: SEVELAMER CARBONATE 800 MG TAB PO SCH ×3 (08:37→17:03)
[2020-08-22] MEDS: ASPIRIN 325 MG TAB PO SCH (08:38)
[2020-08-22] MEDS: ALUMINUM HYDROXIDE 64 MG/ML BOTTLE PO SCH ×3 (08:38→17:03)
[2020-08-22] MEDS: amLODIPine 5 MG TAB PO SCH (08:40)
[2020-08-22] MEDS: lisinopriL 5 MG TAB PO SCH (08:41)
[2020-08-22] MEDS: ASCORBIC ACID 500 MG TAB PO SCH (08:41)
[2020-08-22] MEDS: ZINC SULF 220 MG CAP PO SCH (08:42)
[2020-08-22 08:55] LABS: ALBUMIN 1.2 g/dL (3.4-5.0); CARBON DIOXIDE 23.3 mmol/L (21-32); MAGNESIUM 2.4 mg/dL (1.8-2.4); TOTAL BILIRUBIN 0.7 mg/dL (0.0-1.0)
[2020-08-22] MEDS: PIPERACILLIN/TAZOBACTAM 3.375 GM in DEXTROSE 5% 50 ML IV SCH ×2 (09:03→20:53)
[2020-08-22 09:04] LABS: ANION GAP 16.1 (8-16); POTASSIUM 4.4 mmol/L (3.5-5.1)
[2020-08-22 09:33] LABS: CREATININE 5.3 mg/dL (0.6-1.3)
[2020-08-22] MEDS: MIDAZOLAM MDV 100 MG in NACL 0.9% 80 ML IV PRN (09:48)
[2020-08-22] MEDS: PROPOFOL 1000 MG/100 ML PREMIX 100 ML IV PRN (11:32)
--- NOTE | 2020-08-22 12:47 | NUR ---
PT DID NOT TOLERATE HEMODIALYSIS, BP WENT DOWN, ON LEVOPHED 30MCG/MIN, NOTIFIED. WILL CONTINUE TO MONITOR.
--- NOTE | 2020-08-22 15:11 | NUR ---
08/22/20 RD FOLLOW UP COMPLETED PLEASE REFER TO NUTRITION ASSESSMENT UNDER CARE ACTIVITY FOR ESTIMATED NUTRITIONAL NEEDS. 1. CONT. NEPRO AT 35 ML/HR WITH FWF PER MD. - PROVIDE 840 ML TOTAL VOLUME, 1512 KCAL, 68 GM PROTEIN, AND 610 ML FREE WATER, WHICH WILL MEET 100% EST KCAL AND 77% EST PROTEIN NEEDS. 2. CONSULT RDN PRN. 3. RD WILL F/U 2-3 DAYS; HIGH RISK CARROLL ALAS RD
--- NOTE | 2020-08-22 19:25 | NUR ---
ENDORSED PT TO TECHNOLOGY ANALYST NURSE FOR CONTINUOUS OF CARE.
--- NOTE | 2020-08-22 19:45 | NUR ---
RECEIVED REPORT FROM DAY NURSE PT SEDATED ON PROPOFOL AND VERSED DRIP. ETT TO VENT ON 100% PEEP 7, DESATURATING 80%, PT HAD HD TODAY BUT DID NOT TOLERATE WELL. CURRENTLY ON LEVOPHED DRIP AND NEOSYNEPHRINE DRIP. HR 70-80 BP 90S, HD CATH TO R UPPER CHEST ABEL CATH IN PLACE, OLIGURIC. ABD SOFT NON DISTENDED. OGT IN PLACE WITH FEEDING RUNNING. PICC TO L UPPER ARM NOTED. PERIPHERAL IV TO R FA. SKIN INTACT. BED LOCKED IN LOWEST POSITION. WILL CONTINUE TO OBSERVE.
--- NOTE | 2020-08-22 19:50 | NUR ---
PT DESATURATING, PULSE OX CHANGED. VAP ORAL CARE, DONE, MINIMAL SECRETIONS NOTED VIA INLINE SUCTION. NO GAG REFLEX NOTED. CURRENTLY ON VC 100% PEEP 7, TV 350 R 20, WILL CONTINUE TO MONITOR RT NOTIFIED.
[2020-08-22] MEDS: SIMVASTATIN 40 MG TAB PO SCH (21:01)
--- NOTE | 2020-08-22 22:15 | NUR ---
NOTIFIED ABOUT PT DESATURATION, STATED TO SWITCH TO PRESSURE CONTROL 20, IT:1 PEEP 8 MAY GO TO 10. WILL CONTINUE TO OBSERVE.
--- NOTE | 2020-08-22 22:20 | NUR ---
SPOKE ON THE PHONE WITH DR. VELAZQUEZ REGARDING CHANGE IN PT VENT SETTINGS TO PC 20 I:TIME 1.0, PEEP 8. CHANGED PT TO VENT SETTINGS STATED ABOVE. WILL CONTINUE TO MONITOR
--- NOTE | 2020-08-22 22:30 | NUR ---
FAMILY CALLED, LEATHA MURIEL [phone], NO ANSWER VOICEMAIL LEFT. NANI LLAMAS, SON CALLED, INFORMED ABOUT PT CRITICIAL CONDITION, FAMILY ADVISED THAT PT IS RECEIVING MULTIPLE PRESSORS VIA IV AND IS ON 100% ON VENTILATOR. FAMILY WISHES TO MAKE DNR @ THIS TIME, 2 RN VERIFICATION DONE, WILL INFORM MD, WILL CONTINUE TO OBSERVE
--- NOTE | 2020-08-22 22:40 | NUR ---
DR CASEY NOTIFIED FAMILY WISHES FOR DNR, 2 RN VERIFICATION DONE, WITH KENRICK RUSSELL. WILL CONTINUE TO MONITOR. FAMILY ADVISED ABOUT VISITOR POLICY, SOFT WATER MECHANIC MADE AWARE OF PT CONDITION AND FAMILY WISHES. WILL CONTINUE TO MONITOR.
--- NOTE | 2020-08-22 23:15 | NUR ---
2307 PT ASYSTOLE ON MONITOR, NO FEMORAL/CAROTID PULSE PALPATED. 2315: FARM EQUIPMENT MAINTENANCE SUPERVISOR MADE AWARE; PT PRONOUNCED; PT .
--- NOTE | 2020-08-23 02:00 | NUR ---
Tean, rosina, left message with sql tech.
--- NOTE | 2020-08-23 02:10 | NUR ---
[facility], LUPILL[facility] NOTIFIED CASE # [id number]. PH # [phone]
--- NOTE | 2020-08-23 03:19 | NUR ---
FOLLOW UP CALL TO PASTING MACHINE OPERATOR, , STILL AWAITING CALL BACK FROM PASTING MACHINE OPERATOR. WILL CONTINUE TO OBSERVE.
[2020-08-23 08:07] LABS: HEPATITIS A ANTIBODY IGM Negative (Negative); HEPATITIS B CORE AB TOTAL Negative (Negative); HEPATITIS B SURFACE ANTIBODY Reactive (.); HEPATITIS B SURFACE ANTIGEN Negative (Negative)
--- NOTE | 2020-08-23 08:34 | NUR ---
SECURITY MOVED BODY TO FREEZER.
== END 2020-08-23 07:05 | DRG 720 ==
LOC: MED 22:07 → MTU 08-12 07:00 → MMU 08-16 14:10
PROVIDERS: ADMIT Emergency Medicine; ATTEND Emergency Medicine
PROC: 5A1D70Z Performance of Urinary Filtration, Intermittent, Less than 6 Hours Per Day (ICD-10-PCS; 2020-08-12)
PROC: XW13325 Transfusion of Convalescent Plasma (Nonautologous) into Peripheral Vein, Percutaneous Approach, New Technology Group 5 (ICD-10-PCS; 2020-08-13)
PROC: 5A1D70Z Performance of Urinary Filtration, Intermittent, Less than 6 Hours Per Day (ICD-10-PCS; 2020-08-13)
PROC: 5A1D70Z Performance of Urinary Filtration, Intermittent, Less than 6 Hours Per Day (ICD-10-PCS; 2020-08-15)
PROC: 5A1935Z Respiratory Ventilation, Less than 24 Consecutive Hours (ICD-10-PCS; principal; 2020-08-16)
PROC: 0BH17EZ Insertion of Endotracheal Airway into Trachea, Via Natural or Artificial Opening (ICD-10-PCS; 2020-08-16)
PROC: 5A1955Z Respiratory Ventilation, Greater than 96 Consecutive Hours (ICD-10-PCS; 2020-08-16)
PROC: 0W9B30Z Drainage of Left Pleural Cavity with Drainage Device, Percutaneous Approach (ICD-10-PCS; 2020-08-16)
PROC: 0W9930Z Drainage of Right Pleural Cavity with Drainage Device, Percutaneous Approach (ICD-10-PCS; 2020-08-16)
PROC: 5A1D70Z Performance of Urinary Filtration, Intermittent, Less than 6 Hours Per Day (ICD-10-PCS; 2020-08-18)
PROC: 30230N1 Transfusion of Nonautologous Red Blood Cells into Peripheral Vein, Open Approach (ICD-10-PCS; 2020-08-19)
PROC: 5A1D70Z Performance of Urinary Filtration, Intermittent, Less than 6 Hours Per Day (ICD-10-PCS; 2020-08-19)
PROC: 5A1D70Z Performance of Urinary Filtration, Intermittent, Less than 6 Hours Per Day (ICD-10-PCS; 2020-08-21)
PROC: 5A1D70Z Performance of Urinary Filtration, Intermittent, Less than 6 Hours Per Day (ICD-10-PCS; 2020-08-22)
DX: A41.9 Sepsis, unspecified organism (principal); U07.1 COVID-19; Z86.73 Personal history of transient ischemic attack (TIA), and cerebral infarction without residual deficits; N18.6 End stage renal disease; Z99.2 Dependence on renal dialysis; E78.5 Hyperlipidemia, unspecified; I12.0 Hypertensive chronic kidney disease with stage 5 chronic kidney disease or end stage renal disease; E11.22 Type 2 diabetes mellitus with diabetic chronic kidney disease; Z90.49 Acquired absence of other specified parts of digestive tract; J12.82 Pneumonia due to coronavirus disease 2019; E87.1 Hypo-osmolality and hyponatremia; J96.00 Acute respiratory failure, unspecified whether with hypoxia or hypercapnia; N17.0 Acute kidney failure with tubular necrosis; D63.8 Anemia in other chronic diseases classified elsewhere; J93.9 Pneumothorax, unspecified; R65.21 Severe sepsis with septic shock
CPT/HCPCS: 36415; 36600; 71045; 80048; 80053; 82550; 82728; 82803; 82948; 83036; 83605; 83615; 83625; 83735; 83880; 84100; 84436; 84439; 84443; 84479; 84484; 85025; 85379; 85384; 85610; 85651; 85730; 86140; 86704; 86706; 86708; 86709; 86803; 86886; 86900; 86901; 86920; 87040; 87070; 87081; 87205; 87340; 87804; 93005; 94002; 94003; 96372; 99291; 99292; J0696; J1100; J1644; J1815; J2250; J2370; J2543; J2704; J3490; J3535; J7030; J7060; P9016; P9017; U0003